=== PATIENT | female | born 1965 | race American Indian/Alaskan Native ===

== ENCOUNTER 2016-06-12 12:12 | Emergency (ER) | payer SELFPAY ==
[2016-06-12] MEDS ORDERED: TORADOL IM ONE (14:51)
--- NOTE | 2016-06-12 15:21 | XRay Report ---
Right wrist 3 views: History: Pain over ulnar aspect. Findings: No fracture or dislocation. No soft tissue calcification. Impression Essentially negative right wrist.
--- NOTE | 2016-06-12 16:59 | Emergency Department Report ---
Entered by PERICO FERREIRA, acting as scribe for TRICE CANNON PA. ED General Adult HPI - General Chief complaint: Extremity Injury, Upper Stated complaint: RT HAND PAIN Time Seen by Provider: 06/12/16 14:34 Source: patient Mode of arrival: Ambulatory Limitations: No Limitations - History of Present Illness Initial comments: 50 year old female presents to the ED for evaluation of right wrist pain for 3 days. Patient describes her pain as pressure and rates her discomfort as a 9/10 in severity. She reports no relieve with home treatments which included ibuprofen and OTC topical lidocaine ointment. She reports no known injury or cause but notes she does repetitive motions at work. Denies tingling, numbness and Hx of carpal tunnel Onset/Timin -: days(s) Location: right (wrist) Radiation: non-radiation Severity scale (0 -10): 9 Quality: constant Consistency: constant Improves with: none Worsens with: movement Associated Symptoms: denies: chest pain, fever/chills, nausea/vomiting, shortness of breath, weakness Treatments Prior to Arrival: NSAID, other (OTC topical lidocaine ointment) - Related Data Previous Rx's Medication Instructions Recorded Last Taken Type Ibuprofen [Motrin] 400 mg PO Q8H PRN #20 tablet 06/18/14 06/26/14 Rx Sulfamethoxazole/Trimethoprim 1 each PO BID #20 tablet 06/18/14 06/25/14 Rx [Bactrim Ds] Acetamin/Codeine 120-12Mg/5 ml 5 ml PO TID PRN #10 dose 06/26/14 Unknown Rx [Tylenol/Codeine] Benzonatate [Tessalon Perles] 100 mg PO Q8HR #10 capsule 06/26/14 Unknown Rx Ibuprofen [Motrin 600 MG tab] 600 mg PO Q8H PRN #14 tablet 06/26/14 Unknown Rx Cephalexin [Keflex] 500 mg PO Q6H #28 capsule 08/16/14 Unknown Rx Clotrimazole 1% [Lotrimin 1%] 1 applic TP BID #2 tube 08/16/14 Unknown Rx Ibuprofen [Motrin] 800 mg PO Q8H PRN #30 tablet 08/16/14 Unknown Rx Lisinopril [Zestril TAB] 10 mg PO QDAY #90 tablet 08/16/14 Unknown Rx traMADol [Ultram] 50 mg PO Q6HR PRN #14 tablet 08/16/14 Unknown Rx Lisinopril/Hydrochlorothiazide 1 tab PO QDAY #60 tablet 08/29/14 Unknown Rx [Zestoretic 10-12.5 mg] Amoxicillin/K Clav Tab [Augmentin 1 tab PO Q12HR #10 tab 01/14/16 Unknown Rx 875 mg] Naproxen [Naprosyn] 500 mg PO BID #30 tablet 06/12/16 Unknown Rx Allergies Allergy/AdvReac Type Severity Reaction Status Date / Time No Known Allergies Allergy Verified 06/12/16 12:28 ED Past Medical Hx - Past Medical History Hx Hypertension: Yes - Surgical History Additional Surgical History: finger - Social History Smoking Status: Never Smoker Substance Use Type: None - Medications Home Medications: Home Medications Medication Instructions Recorded Confirmed Last Taken Type Ibuprofen [Motrin] 400 mg PO Q8H PRN #20 tablet 06/18/14 06/26/14 06/26/14 Rx Sulfamethoxazole/Trimethoprim 1 each PO BID #20 tablet 06/18/14 06/26/14 Rx [Bactrim Ds] Acetamin/Codeine 120-12Mg/5 ml 5 ml PO TID PRN #10 dose 06/26/14 Unknown Rx [Tylenol/Codeine] Benzonatate [Tessalon Perles] 100 mg PO Q8HR #10 capsule 06/26/14 Unknown Rx Ibuprofen [Motrin 600 MG tab] 600 mg PO Q8H PRN #14 tablet 06/26/14 Unknown Rx Cephalexin [Keflex] 500 mg PO Q6H #28 capsule 08/16/14 Unknown Rx Clotrimazole 1% [Lotrimin 1%] 1 applic TP BID #2 tube 08/16/14 Unknown Rx Ibuprofen [Motrin] 800 mg PO Q8H PRN #30 tablet 08/16/14 Unknown Rx Lisinopril [Zestril TAB] 10 mg PO QDAY #90 tablet 08/16/14 Unknown Rx traMADol [Ultram] 50 mg PO Q6HR PRN #14 tablet 08/16/14 Unknown Rx Lisinopril/Hydrochlorothiazide 1 tab PO QDAY #60 tablet 08/29/14 Unknown Rx [Zestoretic 10-12.5 mg] Amoxicillin/K Clav Tab [Augmentin 1 tab PO Q12HR #10 tab 01/14/16 Unknown Rx 875 mg] Naproxen [Naprosyn] 500 mg PO BID #30 tablet 06/12/16 Unknown Rx ED Physical Exam - General Limitations: No Limitations General appearance: other (The patient is well-developed and well-nourished. Patient is in NAD.) - Head Head exam: Present: atraumatic, normocephalic - ENT ENT exam: Present: normal exam, normal orophraynx, mucous membranes moist - Respiratory Respiratory exam: Present: normal lung sounds bilaterally. Absent: respiratory distress, wheezes, rales, rhonchi - Cardiovascular Cardiovascular Exam: Present: regular rate, normal rhythm, normal heart sounds. Absent: systolic murmur, diastolic murmur, rubs, gallop - GI/Abdominal GI/Abdominal exam: Present: soft. Absent: distended, tenderness, guarding, rebound - Expanded Upper Extremity Exam Right Forearm Wrist exam: Present: tenderness (radial aspect of right wrist). Absent : crepidus, erythema, tenderness over anatomical snuff box, pain with axial thumb loading Vascular: Present: normal capillary refill (capillary refill less than 2 seconds. Peripheral pulses intact) - Neurological Exam Neurological exam: Present: alert, oriented X3. Absent: motor sensory deficit - Psychiatric Psychiatric exam: Present: normal affect, normal mood ED Course Vital Signs 06/12/16 06/12/16 12:30 15:18 Temperature 98.2 F Pulse Rate 75 Respiratory 17 20 Rate Blood Pressure 157/93 O2 Sat by Pulse 98 Oximetry ED Medical Decision Making - Lab Data Vital Signs 06/12/16 06/12/16 12:30 15:18 Temperature 98.2 F Pulse Rate 75 Respiratory 17 20 Rate Blood Pressure 157/93 O2 Sat by Pulse 98 Oximetry - Radiology Data Radiology results: report reviewed, image reviewed Right wrist 3 views: History: Pain over ulnar aspect. Findings: No fracture or dislocation. No soft tissue calcification. Impression Essentially negative right wrist. Transcribed By: PTP Dictated By: DONATO WANG MD Electronically Authenticated By: DONATO WANG MD Signed Date/Time: 06/12/16 7080 - Medical Decision Making 50 year old female presents to the ED for evaluation of right wrist pain for 3 days. X-ray reveals no acute fracture or dislocation. Patient is in no acute distress at this time. She will be discharged home and is encouraged to follow up with a primary care provider. She will be sent home on naproxen and is encouraged to return to the emergency room for any worsening symptoms. ED Disposition Clinical Impression: Hand pain Qualifiers: Laterality: right Qualified Code(s): M79.641 - Pain in right hand Wrist pain Qualifiers: Laterality: right Qualified Code(s): M25.531 - Pain in right wrist Disposition: DISCHARGED TO HOME OR SELFCARE Is pt being admited?: No Does the pt Need Aspirin: No Condition: Stable Instructions: Carpal Tunnel Syndrome (ED), Wrist Injury (ED), Hand Sprain (ED) Additional Instructions: Follow-up with primary care provider. Return to the emergency department if symptoms worsen. Prescriptions: Naproxen [Naprosyn] 500 mg PO BID #30 tablet Referrals: PRIMARY CAREMD [Primary Care Provider] - 3-5 Days HOSEA KEN MD [Staff Physician] - 3-5 Days [facility] [Outside] - 3-5 Days Forms: Work/School Release Form(ED) Time of Disposition: 16:53 This documentation as recorded by the HANNA schaffer REBEKAH,accurately reflects the service I personally performed and the decisions made by ,TRICE CANNON PA.
[2016-06-12 17:30] VITALS: BP 134/85
== END 2016-06-12 17:30 | disposition home or self-care (01) ==
LOC: ED 12:12
DX: M25.531 Pain in right wrist (principal); M79.641 Pain in right hand; I10 Essential (primary) hypertension
CPT/HCPCS: 73110; 96372; 99283; J1885

== ENCOUNTER 2016-10-02 20:13 | Emergency (ER) | payer SELFPAY ==
[2016-10-02 20:24] VITALS: BP 157/101
[2016-10-02 20:40] LABS: Basophils % (Auto) 0.9 % (0.0-1.8); Eosinophils % (Auto) 0.5 % (0.0-4.3); Hematocrit 40.5 % (30.3-42.9); Hemoglobin 12.9 gm/dl (10.1-14.3); Mean Corpuscular HGB Conc 32 % (30-34); Mean Corpuscular Volume 80 fl (79-97); Platelet Count 125 K/mm3 (140-440); Red Blood Count 5.04 M/mm3 (3.65-5.03); Red Cell Distribution Width 15.7 % (13.2-15.2); White Blood Count 7.1 K/mm3 (4.5-11.0)
[2016-10-02 20:50] LABS: Anion Gap 12 mmol/L; BUN/Creatinine Ratio 15.71; Blood Urea Nitrogen 11 mg/dL (7-17); Carbon Dioxide 31 mmol/L (22-30); Chloride 99.5 mmol/L (98-107); Glucose 100 mg/dL (65-100); Sodium 138 mmol/L (137-145)
[2016-10-02 20:53] LABS: Mean Corpuscular Hemoglobin 26 pg (28-32)
--- NOTE | 2016-10-05 17:21 | ED Elopement Review ---
ED Pt Elopement review - Results review Lab results: Laboratory Tests 10/02/16 10/02/16 20:25 20:25 WBC 7.1 RBC 5.04 H Hgb 12.9 Hct 40.5 MCV 80 MCH 26 L MCHC 32 RDW 15.7 H Plt Count 125 L Lymph % (Auto) 53.8 H Isabela % (Auto) 7.9 H Eos % (Auto) 0.5 Baso % (Auto) 0.9 Lymph # 3.8 Isabela # 0.6 Eos # 0.0 Baso # 0.1 Seg Neutrophils % 36.9 L Seg Neutrophils # 2.6 Sodium 138 Potassium 4.0 Chloride 99.5 Carbon Dioxide 31 H Anion Gap 12 BUN 11 Creatinine 0.7 Estimated GFR > 60 BUN/Creatinine Ratio 15.71 Glucose 100 Calcium 9.0 Troponin T < 0.010 - Call Back decision Pt Call Back Decision: No action required
== END 2016-10-02 23:34 | disposition left against medical advice (07) ==
LOC: ED 20:13
DX: R07.9 Chest pain, unspecified (principal); M79.602 Pain in left arm; Z53.21 Procedure and treatment not carried out due to patient leaving prior to being seen by health care provider
CPT/HCPCS: 36415; 80048; 84484; 85025; 93005; 93010

== ENCOUNTER 2017-02-06 18:01 | Emergency (ER) | payer OTHER ==
--- NOTE | 2017-02-06 21:38 | Emergency Department Report ---
HPI - General Chief Complaint: Sore Throat Time Seen by Provider: 02/06/17 20:48 - HPI HPI: 51-year-old female presents today complaining of sore throat, body aches and chills times one day. Admits to painful swallowing, nasal congestion and left earache. The patient tried Goody powder and warm salt water gargles with some relief. Admits to grandchildren having similar symptoms. Denies fever, nausea , vomiting, chest pain, shortness of breath, abdominal pain. ED Past Medical Hx - Past Medical History Previous Medical History?: Yes Hx Hypertension: Yes - Surgical History Past Surgical History?: Yes Additional Surgical History: finger - Social History Smoking Status: Never Smoker Substance Use Type: None - Medications Home Medications: Home Medications Medication Instructions Recorded Confirmed Last Taken Type Ibuprofen [Motrin] 400 mg PO Q8H PRN #20 tablet 06/18/14 06/26/14 06/26/14 Rx Sulfamethoxazole/Trimethoprim 1 each PO BID #20 tablet 06/18/14 06/26/14 Rx [Bactrim Ds] Acetamin/Codeine 120-12Mg/5 ml 5 ml PO TID PRN #10 dose 06/26/14 Unknown Rx [Tylenol/Codeine] Benzonatate [Tessalon Perles] 100 mg PO Q8HR #10 capsule 06/26/14 Unknown Rx Ibuprofen [Motrin 600 MG tab] 600 mg PO Q8H PRN #14 tablet 06/26/14 Unknown Rx Cephalexin [Keflex] 500 mg PO Q6H #28 capsule 08/16/14 Unknown Rx Clotrimazole 1% [Lotrimin 1%] 1 applic TP BID #2 tube 08/16/14 Unknown Rx Ibuprofen [Motrin] 800 mg PO Q8H PRN #30 tablet 08/16/14 Unknown Rx Lisinopril [Zestril TAB] 10 mg PO QDAY #90 tablet 08/16/14 Unknown Rx traMADol [Ultram] 50 mg PO Q6HR PRN #14 tablet 08/16/14 Unknown Rx Lisinopril/Hydrochlorothiazide 1 tab PO QDAY #60 tablet 08/29/14 Unknown Rx [Zestoretic 10-12.5 mg] Naproxen [Naprosyn] 500 mg PO BID #30 tablet 06/12/16 Unknown Rx Amoxicillin/K Clav Tab [Augmentin 1 tab PO Q12HR #20 tab 02/06/17 Unknown Rx 875MG TAB] Lidocaine Viscous 2% 15 ml MM TID #100 ml 02/06/17 Unknown Rx ED Review of Systems ROS: Stated complaint: SORE THROAT, BODY ACHES Other details as noted in HPI Constitutional: chills, other (bodyaches). denies: fever Eyes: denies: eye pain ENT: ear pain, throat pain, congestion Respiratory: denies: cough, shortness of breath, wheezing Cardiovascular: denies: chest pain, palpitations Endocrine: no symptoms reported Gastrointestinal: denies: abdominal pain, nausea, vomiting Musculoskeletal: denies: back pain Skin: denies: rash Neurological: denies: headache, weakness, numbness, paresthesias Physical Exam - Physical Exam Vital Signs: Vital Signs 02/06/17 19:26 Temperature 99.7 F H Pulse Rate 86 Respiratory 18 Rate Blood Pressure 151/75 O2 Sat by Pulse 99 Oximetry Physical Exam: GENERAL: The patient is well-developed and well-nourished. Patient is in NAD. HEAD: Normocephalic. Atraumatic. Pressure upon palpation of maxillary sinuses. EYES: Extraocular motions are intact, PERRL. EARS: External auditory canals and tympanic membranes clear; hearing grossly intact. NOSE: Normal nasal mucosa with no nasal discharge. THROAT: Posterior pharynx erythematous without tonsillomegaly. No tonsillar exudates. NECK: Positive for anterior cervical lymphadenopathy. CHEST/LUNGS: Clear to auscultation throughout. HEART/CARDIOVASCULAR: Regular rate and rhythm. No murmurs, rubs or gallops. ABDOMEN: Abdomen is soft, nontender. Bowel sounds normoactive. No guarding or rebound tenderness. EXTREMITIES: Peripheral pulses intact. Capillary refill less than 2 seconds. NEURO: Alert and oriented x 3. Normal gait. ED Course Vital Signs 02/06/17 19:26 Temperature 99.7 F H Pulse Rate 86 Respiratory 18 Rate Blood Pressure 151/75 O2 Sat by Pulse 99 Oximetry ED Medical Decision Making - Lab Data Vital Signs 02/06/17 19:26 Temperature 99.7 F H Pulse Rate 86 Respiratory 18 Rate Blood Pressure 151/75 O2 Sat by Pulse 99 Oximetry - Medical Decision Making 51-year-old female presents today complaining of sore throat, chills and body aches 1 day. Her rapid strep test is positive. On exam patient has erythematous posterior pharynx, tonsillomegaly and pressure upon palpation of maxillary sinuses. Patient is in no acute distress at this time. She will be discharged home and is encouraged to follow up with a primary care provider. She will be sent home on Augmentin and viscous lidocaine and is encouraged to return to the emergency room for any worsening symptoms. Critical care attestation.: If time is entered above; I have spent that time in minutes in the direct care of this critically ill patient, excluding procedure time. ED Disposition Clinical Impression: Pharyngitis Qualifiers: Pharyngitis/tonsillitis etiology: streptococcus Qualified Code(s): J02.0 - Streptococcal pharyngitis Sinusitis Qualifiers: Sinusitis location: maxillary Chronicity: acute Recurrence: non-recurrent Qualified Code(s): J01.00 - Acute maxillary sinusitis, unspecified Disposition: TO HOME OR SELFCARE Is pt being admited?: No Does the pt Need Aspirin: No Condition: Stable Instructions: Pharyngitis (ED), Sinusitis (ED) Additional Instructions: Alternate Tylenol and Motrin for better fever control. Follow-up with primary care provider. Return to the emergency department if symptoms worsen. Prescriptions: Amoxicillin/K Clav Tab [Augmentin 875MG TAB] 1 tab PO Q12HR #20 tab Lidocaine Viscous 2% 15 ml MM TID #100 ml Referrals: PRIMARY CARE [Primary Care Provider] - 3-5 Days [facility] [Outside] - 3-5 Days Forms: Work/School Release Form(ED), Accompanied Note Time of Disposition: 21:39
[2017-02-06 21:57] VITALS: BP 151/92
== END 2017-02-06 21:57 | disposition home or self-care (01) ==
LOC: ED 18:01
DX: J02.9 Acute pharyngitis, unspecified (principal); J32.0 Chronic maxillary sinusitis; I10 Essential (primary) hypertension
CPT/HCPCS: 87430; 99282

== ENCOUNTER 2018-09-10 12:12 | Emergency (ER) | payer OTHER ==
[2018-09-10 12:25] VITALS: BP 152/78
--- NOTE | 2018-09-10 12:44 | Event Note ---
ED Screening Note ED Screening Note: lle pain- behind knee jeans to tight to see leg on screening need to eval in ACC no cp no sob no tachy no fever no trauma no hx of same pmh htn mom dec chf dad dec ca home rx bp med This initial assessment/diagnostic orders/clinical plan/treatment(s) is/are subject to change based on patients health status, clinical progression and re- assessment by fellow clinical providers in the ED. Further treatment and workup at subsequent clinical providers discretion. Patient/guardian urged not to elope from the ED as their condition may be serious if not clinically assessed and managed. Initial orders include: eval in ACC
[2018-09-10] MEDS ORDERED: IBUPROFEN PO ONE (13:44)
--- NOTE | 2018-09-10 13:44 | Emergency Department Report ---
ED Lower Extremity HPI - General Chief Complaint: Extremity Injury, Lower Stated Complaint: L LEG PAIN Time Seen by Provider: 09/10/18 13:30 Source: patient, RN notes reviewed Mode of arrival: Ambulatory Limitations: No Limitations - History of Present Illness Initial Comments: This is a 52-year-old female, pleasant, has history of obesity and hypertension, presents to the emergency room tonight with a complaint of nontraumatic left medial thigh/quadricep pain and present for the past day or so. It is achy and sharp. It increases with palpation. It decreases with rest. The patient denies DVT, pulmonary embolus risk factors. She endorses that her job has her standing up "all day." She denies headache, neck pain, abdominal pain, extremity weakness, denies swelling, denies redness, pus, streaking, denies urinary symptoms, denies ocular symptoms. On review of systems, she doesn't worse intermittent chest discomfort, present "for a long time", which is not associated with vomiting, diaphoresis, exertion or nausea or vomiting. She last experienced this chest discomfort 36 hours ago. She is chest pain-free at this time. She has not taken any [id number] medications for her pain. MD Complaint: other -: Gradual, days(s) Injury: Thigh: Left Type of Injury: other Place: home, work Severity: moderate Improves With: rest Worsens With: movement, palpation - Related Data Previous Rx's Medication Instructions Recorded Last Taken Type Ibuprofen [Motrin] 400 mg PO Q8H PRN #20 tablet 06/18/14 06/26/14 Rx Sulfamethoxazole/Trimethoprim 1 each PO BID #20 tablet 06/18/14 06/25/14 Rx [Bactrim Ds] Acetamin/Codeine 120-12Mg/5 ml 5 ml PO TID PRN #10 dose 06/26/14 Unknown Rx [Tylenol/Codeine] Benzonatate [Tessalon Perles] 100 mg PO Q8HR #10 capsule 06/26/14 Unknown Rx Ibuprofen [Motrin 600 MG tab] 600 mg PO Q8H PRN #14 tablet 06/26/14 Unknown Rx Clotrimazole 1% [Lotrimin 1%] 1 applic TP BID #2 tube 08/16/14 Unknown Rx Ibuprofen [Motrin] 800 mg PO Q8H PRN #30 tablet 08/16/14 Unknown Rx Lisinopril [Zestril TAB] 10 mg PO QDAY #90 tablet 08/16/14 Unknown Rx cephALEXin [Keflex] 500 mg PO Q6H #28 capsule 08/16/14 Unknown Rx traMADol [Ultram] 50 mg PO Q6HR PRN #14 tablet 08/16/14 Unknown Rx Lisinopril/Hydrochlorothiazide 1 tab PO QDAY #60 tablet 08/29/14 Unknown Rx [Zestoretic 10-12.5 mg] Naproxen [Naprosyn] 500 mg PO BID #30 tablet 06/12/16 Unknown Rx Amoxicillin/K Clav Tab [Augmentin 1 tab PO Q12HR #20 tab 02/06/17 Unknown Rx 875MG TAB] Lidocaine Viscous 2% 15 ml MM TID #100 ml 02/06/17 Unknown Rx Acetaminophen [Non-Aspirin Extra 500 mg PO Q6HR PRN #30 tablet 09/10/18 Unknown Rx Strength] Ibuprofen [Motrin] 600 mg PO Q8H PRN #30 tablet 09/10/18 Unknown Rx Allergies Allergy/AdvReac Type Severity Reaction Status Date / Time No Known Allergies Allergy Verified 09/10/18 12:25 ED Review of Systems ROS: Stated complaint: L LEG PAIN Other details as noted in HPI Constitutional: denies: fever Eyes: denies: eye discharge ENT: denies: epistaxis Respiratory: denies: cough Cardiovascular: denies: syncope Gastrointestinal: denies: abdominal pain Genitourinary: denies: dysuria Musculoskeletal: arthralgia, myalgia Skin: denies: lesions Neurological: denies: weakness ED Past Medical Hx - Past Medical History Hx Hypertension: Yes - Surgical History Additional Surgical History: finger - Social History Smoking Status: Never Smoker Substance Use Type: Alcohol - Medications Home Medications: Home Medications Medication Instructions Recorded Confirmed Last Taken Type Ibuprofen [Motrin] 400 mg PO Q8H PRN #20 tablet 06/18/14 06/26/14 06/26/14 Rx Sulfamethoxazole/Trimethoprim 1 each PO BID #20 tablet 06/18/14 06/26/14 06/25/14 Rx [Bactrim Ds] Acetamin/Codeine 120-12Mg/5 ml 5 ml PO TID PRN #10 dose 06/26/14 Unknown Rx [Tylenol/Codeine] Benzonatate [Tessalon Perles] 100 mg PO Q8HR #10 capsule 06/26/14 Unknown Rx Ibuprofen [Motrin 600 MG tab] 600 mg PO Q8H PRN #14 tablet 06/26/14 Unknown Rx Clotrimazole 1% [Lotrimin 1%] 1 applic TP BID #2 tube 08/16/14 Unknown Rx Ibuprofen [Motrin] 800 mg PO Q8H PRN #30 tablet 08/16/14 Unknown Rx Lisinopril [Zestril TAB] 10 mg PO QDAY #90 tablet 08/16/14 Unknown Rx cephALEXin [Keflex] 500 mg PO Q6H #28 capsule 08/16/14 Unknown Rx traMADol [Ultram] 50 mg PO Q6HR PRN #14 tablet 08/16/14 Unknown Rx Lisinopril/Hydrochlorothiazide 1 tab PO QDAY #60 tablet 08/29/14 Unknown Rx [Zestoretic 10-12.5 mg] Naproxen [Naprosyn] 500 mg PO BID #30 tablet 06/12/16 Unknown Rx Amoxicillin/K Clav Tab [Augmentin 1 tab PO Q12HR #20 tab 02/06/17 Unknown Rx 875MG TAB] Lidocaine Viscous 2% 15 ml MM TID #100 ml 02/06/17 Unknown Rx Acetaminophen [Non-Aspirin Extra 500 mg PO Q6HR PRN #30 tablet 09/10/18 Unknown Rx Strength] Ibuprofen [Motrin] 600 mg PO Q8H PRN #30 tablet 09/10/18 Unknown Rx ED Physical Exam - General Limitations: No Limitations General appearance: alert, in no apparent distress - Head Head exam: Present: atraumatic, normocephalic, other - Eye Eye exam: Present: normal appearance, EOMI. Absent: nystagmus - ENT ENT exam: Present: normal exam, normal orophraynx, mucous membranes moist, normal external ear exam - Neck Neck exam: Present: normal inspection, full ROM. Absent: tenderness, meningismus - Respiratory Respiratory exam: Present: normal lung sounds bilaterally. Absent: respiratory distress - Cardiovascular Cardiovascular Exam: Present: regular rate, normal rhythm, normal heart sounds. Absent: bradycardia, tachycardia, irregular rhythm, systolic murmur, diastolic murmur, rubs, gallop - GI/Abdominal GI/Abdominal exam: Present: soft. Absent: distended, tenderness, guarding, rebound, rigid, pulsatile mass - Extremities Exam Extremities exam: Present: normal inspection, full ROM, tenderness (there is reproducible left-sided medial thigh tenderness. There is no long bony tenderness. Chaperoned by nurse Knidra Arias), other (2+ pulses noted in the bilateral upper, lower extremities. Compartments soft. No long bony tenderness. The pelvis is stable.). Absent: pedal edema, calf tenderness - Back Exam Back exam: Present: normal inspection, full ROM. Absent: tenderness, CVA tenderness (R), CVA tenderness (L), paraspinal tenderness, vertebral tenderness - Neurological Exam Neurological exam: Present: alert, oriented X3, other (Extraocular movements intact. Tongue midline. No facial droop. Facial sensation intact to light touch in the V1, V2, V3 distribution bilaterally. 5 and 5 strength in 4 extremities.. Sensation is intact to light touch in 4 extremities.). Absent: motor sensory deficit - Psychiatric Psychiatric exam: Present: normal affect, normal mood - Skin Skin exam: Present: warm, dry, intact, normal color. Absent: rash ED Course Vital Signs 09/10/18 12:24 Temperature 98.2 F Pulse Rate 67 Respiratory 16 Rate Blood Pressure 152/78 [Right] O2 Sat by Pulse 97 Oximetry ED Lower Extremity MDM - Lab Data Vital Signs 09/10/18 12:24 Temperature 98.2 F Pulse Rate 67 Respiratory 16 Rate Blood Pressure 152/78 [Right] O2 Sat by Pulse 97 Oximetry - EKG Data -: EKG Interpreted by Ar Rate: bradycardia - EKG Data 09/10/18 14:16 This is a sinus bradycardia, normal axis, QTC within normal limits, borderline left ventricular hypertrophy, no active chest pain at this time, this EKG is not consistent with ST elevation myocardial infarction. - Medical Decision Making Differential diagnosis, including not limited to: Arthritis, sprain, strain, patellofemoral syndrome Assessment and plan: 52-year-old female with left medial thigh pain, reproducible, not tachycardic, not hypoxic, no pulmonary embolus or DVT risk factors, low risk by well's criteria, possibly musculoskeletal pain. Her pain is treated in the emergency room. She is to follow-up with an outpatient primary care doctor, and/or orthopedics. We discussed possible modalities for home therapy, including stretching, physiologic range of motion exercises, alternating heat and cold. EKG unremarkable, no active chest pain at this time, patient smiling with family member, and appears ready for discharge. Critical care attestation.: If time is entered above; I have spent that time in minutes in the direct care of this critically ill patient, excluding procedure time. ED Disposition Clinical Impression: Left leg pain Disposition: DC-01 TO HOME OR SELFCARE Is pt being admited?: No Does the pt Need Aspirin: No Condition: Good Instructions: Patellofemoral Pain Syndrome (ED), Knee Exercises (GEN) Additional Instructions: Rest, avoid heavy lifting, and avoid strenuous physical activities. Take the pain medications as directed. participate in range of motion exercises, and stretches as we have discussed. Alternate ice packs with heat packs as directed. Follow up with a primary care doctor or orthopedist for this pain in the next 3- 4 weeks. Return to the emergency room right away with her, worsens or different symptoms, or symptoms not present on the initial emergency room evaluation. Referrals: [facility] [Provider Group] - 3-[address] [facility] [Provider Group] - 3-5 Days Forms: Work/School Release Form(ED)
== END 2018-09-10 15:04 | disposition home or self-care (01) ==
LOC: ED 12:12
DX: M79.605 Pain in left leg (principal); I10 Essential (primary) hypertension; Z79.899 Other long term (current) drug therapy
CPT/HCPCS: 93005; 93010; 99282

== ENCOUNTER 2018-10-02 09:13 | Emergency (ER) | payer OTHER ==
[2018-10-02 09:20] VITALS: BP 165/93
[2018-10-02] MEDS ORDERED: IBUPROFEN PO ONE (09:31)
--- NOTE | 2018-10-02 09:34 | Emergency Department Report ---
ED ENT HPI - General Chief complaint: Sore Throat Stated complaint: STREP THROAT Time Seen by Provider: 10/02/18 09:19 Source: patient Mode of arrival: Ambulatory Limitations: No Limitations - History of Present Illness Initial comments: 52-year-old -[place] female presents to the emergency room for sore throat since 09/30/2018. Patient denies any fever proportion to the Goody powder for pain. She does admit to grandchildren N Carpenter with strep throat. Patient reports that the past medical history of hypertension and currently takes lisinopril and amlodipine. Patient did not take her blood pressure medication this morning. MD complaint: sore throat Onset/Timin -: days(s) Location: throat Severity: severe Severity scale (0 -10): 10 Quality: aching, sharp Consistency: constant Improves with: other medication Worsens with: swallowing Associated Symptoms: cough, pain with swallowing. denies: fever - Related Data Previous Rx's Medication Instructions Recorded Last Taken Type Ibuprofen [Motrin] 400 mg PO Q8H PRN #20 tablet 06/18/14 06/26/14 Rx Sulfamethoxazole/Trimethoprim 1 each PO BID #20 tablet 06/18/14 06/25/14 Rx [Bactrim Ds] Benzonatate [Tessalon Perles] 100 mg PO Q8HR #10 capsule 06/26/14 Unknown Rx Ibuprofen [Motrin 600 MG tab] 600 mg PO Q8H PRN #14 tablet 06/26/14 Unknown Rx Clotrimazole 1% [Lotrimin 1%] 1 applic TP BID #2 tube 08/16/14 Unknown Rx Ibuprofen [Motrin] 800 mg PO Q8H PRN #30 tablet 08/16/14 Unknown Rx Lisinopril [Zestril TAB] 10 mg PO QDAY #90 tablet 08/16/14 Unknown Rx cephALEXin [Keflex] 500 mg PO Q6H #28 capsule 08/16/14 Unknown Rx traMADol [Ultram] 50 mg PO Q6HR PRN #14 tablet 08/16/14 Unknown Rx Lisinopril/Hydrochlorothiazide 1 tab PO QDAY #60 tablet 08/29/14 Unknown Rx [Zestoretic 10-12.5 mg] Naproxen [Naprosyn] 500 mg PO BID #30 tablet 06/12/16 Unknown Rx Amoxicillin/K Clav Tab [Augmentin 1 tab PO Q12HR #20 tab 02/06/17 Unknown Rx 875MG TAB] Lidocaine Viscous 2% 15 ml MM TID #100 ml 02/06/17 Unknown Rx Acetaminophen [Non-Aspirin Extra 500 mg PO Q6HR PRN #30 tablet 09/10/18 Unknown Rx Strength] Ibuprofen [Motrin] 600 mg PO Q8H PRN #30 tablet 09/10/18 Unknown Rx Acetamin/Codeine 120-12Mg/5 ml 5 ml PO TID PRN #10 dose 10/02/18 Unknown Rx [Tylenol/Codeine 120-12 mg/5 ml] Amoxicillin [Amoxicillin TAB] 875 mg PO BID #20 tablet 10/02/18 Unknown Rx Ibuprofen [Motrin 800 MG tab] 800 mg PO Q8HR PRN #30 tablet 10/02/18 Unknown Rx Allergies Allergy/AdvReac Type Severity Reaction Status Date / Time No Known Allergies Allergy Verified 10/02/18 09:15 ED Dental HPI - General Chief complaint: Sore Throat Stated complaint: STREP THROAT Time Seen by Provider: 10/02/18 09:19 Source: patient Mode of arrival: Ambulatory Limitations: No Limitations - Related Data Previous Rx's Medication Instructions Recorded Last Taken Type Ibuprofen [Motrin] 400 mg PO Q8H PRN #20 tablet 06/18/14 06/26/14 Rx Sulfamethoxazole/Trimethoprim 1 each PO BID #20 tablet 06/18/14 06/25/14 Rx [Bactrim Ds] Benzonatate [Tessalon Perles] 100 mg PO Q8HR #10 capsule 06/26/14 Unknown Rx Ibuprofen [Motrin 600 MG tab] 600 mg PO Q8H PRN #14 tablet 06/26/14 Unknown Rx Clotrimazole 1% [Lotrimin 1%] 1 applic TP BID #2 tube 08/16/14 Unknown Rx Ibuprofen [Motrin] 800 mg PO Q8H PRN #30 tablet 08/16/14 Unknown Rx Lisinopril [Zestril TAB] 10 mg PO QDAY #90 tablet 08/16/14 Unknown Rx cephALEXin [Keflex] 500 mg PO Q6H #28 capsule 08/16/14 Unknown Rx traMADol [Ultram] 50 mg PO Q6HR PRN #14 tablet 08/16/14 Unknown Rx Lisinopril/Hydrochlorothiazide 1 tab PO QDAY #60 tablet 08/29/14 Unknown Rx [Zestoretic 10-12.5 mg] Naproxen [Naprosyn] 500 mg PO BID #30 tablet 06/12/16 Unknown Rx Amoxicillin/K Clav Tab [Augmentin 1 tab PO Q12HR #20 tab 02/06/17 Unknown Rx 875MG TAB] Lidocaine Viscous 2% 15 ml MM TID #100 ml 02/06/17 Unknown Rx Acetaminophen [Non-Aspirin Extra 500 mg PO Q6HR PRN #30 tablet 09/10/18 Unknown Rx Strength] Ibuprofen [Motrin] 600 mg PO Q8H PRN #30 tablet 09/10/18 Unknown Rx Acetamin/Codeine 120-12Mg/5 ml 5 ml PO TID PRN #10 dose 10/02/18 Unknown Rx [Tylenol/Codeine 120-12 mg/5 ml] Amoxicillin [Amoxicillin TAB] 875 mg PO BID #20 tablet 10/02/18 Unknown Rx Ibuprofen [Motrin 800 MG tab] 800 mg PO Q8HR PRN #30 tablet 10/02/18 Unknown Rx Allergies Allergy/AdvReac Type Severity Reaction Status Date / Time No Known Allergies Allergy Verified 10/02/18 09:15 ED Review of Systems ROS: Stated complaint: STREP THROAT Other details as noted in HPI Constitutional: denies: chills, fever Eyes: denies: eye pain, eye discharge, vision change ENT: throat pain. denies: ear pain Respiratory: denies: cough, shortness of breath, wheezing Cardiovascular: denies: chest pain, palpitations Endocrine: no symptoms reported Gastrointestinal: denies: abdominal pain, nausea, diarrhea Genitourinary: denies: urgency, dysuria, discharge Musculoskeletal: denies: back pain, joint swelling, arthralgia Skin: denies: rash, lesions Neurological: denies: headache, weakness, paresthesias Psychiatric: denies: anxiety, depression Hematological/Lymphatic: denies: easy bleeding, easy bruising ED Past Medical Hx - Past Medical History Previous Medical History?: Yes Hx Hypertension: Yes - Surgical History Past Surgical History?: Yes Additional Surgical History: finger - Social History Smoking Status: Never Smoker Substance Use Type: Alcohol, Other - Medications Home Medications: Home Medications Medication Instructions Recorded Confirmed Last Taken Type Ibuprofen [Motrin] 400 mg PO Q8H PRN #20 tablet 0306/26/14 06/26/14 Rx Sulfamethoxazole/Trimethoprim 1 each PO BID #20 tablet 06/18/14 06/26/14 06/25/14 Rx [Bactrim Ds] Benzonatate [Tessalon Perles] 100 mg PO Q8HR #10 capsule 06/26/14 Unknown Rx Ibuprofen [Motrin 600 MG tab] 600 mg PO Q8H PRN #14 tablet 06/26/14 Unknown Rx Clotrimazole 1% [Lotrimin 1%] 1 applic TP BID #2 tube 08/16/14 Unknown Rx Ibuprofen [Motrin] 800 mg PO Q8H PRN #30 tablet 08/16/14 Unknown Rx Lisinopril [Zestril TAB] 10 mg PO QDAY #90 tablet 08/16/14 Unknown Rx cephALEXin [Keflex] 500 mg PO Q6H #28 capsule 08/16/14 Unknown Rx traMADol [Ultram] 50 mg PO Q6HR PRN #14 tablet 08/16/14 Unknown Rx Lisinopril/Hydrochlorothiazide 1 tab PO QDAY #60 tablet 08/29/14 Unknown Rx [Zestoretic 10-12.5 mg] Naproxen [Naprosyn] 500 mg PO BID #30 tablet 06/12/16 Unknown Rx Amoxicillin/K Clav Tab [Augmentin 1 tab PO Q12HR #20 tab 02/06/17 Unknown Rx 875MG TAB] Lidocaine Viscous 2% 15 ml MM TID #100 ml 02/06/17 Unknown Rx Acetaminophen [Non-Aspirin Extra 500 mg PO Q6HR PRN #30 tablet 09/10/18 Unknown Rx Strength] Ibuprofen [Motrin] 600 mg PO Q8H PRN #30 tablet 09/10/18 Unknown Rx Acetamin/Codeine 120-12Mg/5 ml 5 ml PO TID PRN #10 dose 10/02/18 Unknown Rx [Tylenol/Codeine 120-12 mg/5 ml] Amoxicillin [Amoxicillin TAB] 875 mg PO BID #20 tablet 10/02/18 Unknown Rx Ibuprofen [Motrin 800 MG tab] 800 mg PO Q8HR PRN #30 tablet 10/02/18 Unknown Rx ED Physical Exam - General Limitations: No Limitations General appearance: alert, in no apparent distress - Head Head exam: Present: atraumatic, normocephalic - Eye Eye exam: Present: EOMI - Expanded ENT Exam Expanded Throat exam: Positive: tonsillar erythema, tonsillomegaly. Negative: tonsillar exudate - Neck Neck exam: Present: full ROM. Absent: tenderness, lymphadenopathy - Respiratory Respiratory exam: Present: normal lung sounds bilaterally. Absent: respiratory distress - Cardiovascular Cardiovascular Exam: Present: tachycardia - GI/Abdominal GI/Abdominal exam: Present: soft, normal bowel sounds - Extremities Exam Extremities exam: Present: normal inspection - Back Exam Back exam: Present: normal inspection - Neurological Exam Neurological exam: Present: alert, oriented X3 - Psychiatric Psychiatric exam: Present: normal affect, normal mood - Skin Skin exam: Present: warm, dry, intact, normal color. Absent: rash ED Course Vital Signs 10/02/18 09:18 Temperature 100.4 F H Pulse Rate 110 H Respiratory 18 Rate Blood Pressure 165/93 O2 Sat by Pulse 96 Oximetry ED Medical Decision Making - Lab Data Laboratory Tests 10/02/18 Unknown Group A Strep Rapid Positive A - Medical Decision Making 52-year-old -[place] female presents to the emergency room for 2 day history of sore throat. Rapid strep throat has been sent to lab. 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 Critical care attestation.: If time is entered above; I have spent that time in minutes in the direct care of this critically ill patient, excluding procedure time. ED Disposition Clinical Impression: Strep pharyngitis Disposition: DC-01 TO HOME OR SELFCARE Is pt being admited?: No Does the pt Need Aspirin: No Condition: Stable Instructions: Strep Throat (ED) Additional Instructions: Lab tests positive for strep throat. Please complete her antibiotics as prescribed. Pain medication as needed. Increase her fluid intake and should as tolerated. Follow up with her primary care provider if his symptoms persist or gets worse. Prescriptions: Amoxicillin [Amoxicillin TAB] 875 mg PO BID #20 tablet Ibuprofen [Motrin 800 MG tab] 800 mg PO Q8HR PRN #30 tablet PRN Reason: Pain , Severe (7-10) Acetamin/Codeine 120-12Mg/5 ml [Tylenol/Codeine 120-12 mg/5 ml] 5 ml PO TID PRN #10 dose PRN Reason: Pain Referrals: Your,Primary Care Provider [Other] - 3-5 Days [facility] [Outside] - 3-5 Days Forms: Work/School Release Form(ED)
== END 2018-10-02 10:08 | disposition home or self-care (01) ==
LOC: ED 09:13
DX: J02.0 Streptococcal pharyngitis (principal); Z79.899 Other long term (current) drug therapy; I10 Essential (primary) hypertension
CPT/HCPCS: 87430; 99283

== ENCOUNTER 2021-07-18 08:37 | Observation (INO) | payer OTHER ==
[2021-07-18 14:50] LABS: Bacteria,Urine 1+ /HPF (Negative); Bilirubin,Urine NEG (Negative); Blood,Urine NEG (Negative); Color,Urine Yellow (Yellow); Mucus,Urine 3+ /HPF; Protein,Urine <15 mg/dL mg/dL (Negative); Urobilinogen,Urine < 2.0 mg/dL (<2.0)
[2021-07-18] MEDS ORDERED: SODIUM CHLORIDE 0.9% 1000 ML 1,000 ML IV ONE (15:45)
[2021-07-18] MEDS ORDERED: ONDANSETRON 4 MG/2 ML INJ IV ONE (15:45)
[2021-07-18] MEDS ORDERED: PANTOPRAZOLE 40 MG INJ IV ONE (15:45)
[2021-07-18] MEDS ORDERED: MORPHINE 4 MG/1 ML INJ IV ONE (15:48)
--- NOTE | 2021-07-18 15:49 | Emergency Department Report ---
ED General Adult HPI - General Chief complaint: Abdominal Pain Stated complaint: ABD PAIN Time Seen by Provider: 07/18/21 15:33 Source: patient, RN notes reviewed, old records reviewed Mode of arrival: Ambulatory Limitations: No Limitations - History of Present Illness Initial comments: This is a pleasant 55-year-old female, who presents to the ER with a complaint of epigastric abdominal pain, yellow emesis followed by black emesis, lower abdominal cramping, and black tarry stool. Patient has been taking pain medication for lower back pain, she is not sure what the name of the medication is. She denies headache, neck pain, chest pain, shortness of breath, DVT/PE risk factors, and urinary symptoms. Abdominal pain is sharp and increases with palpation. It decreases with rest. She does not take iron sulfate that she is aware of, and she also reports that she does not take systemic anticoagulation. She has had a relatively recent colonoscopy within the past few years, and believes that it demonstrated polyps. -: Gradual Location: abdomen Severity scale (0 -10): 8 Quality: other Consistency: other Improves with: other Worsens with: other - Related Data Previous Rx's Medication Instructions Recorded Last Taken Type Ibuprofen [Motrin] 400 mg PO Q8H PRN #20 tablet 06/18/14 06/26/14 Rx Sulfamethoxazole/Trimethoprim 1 each PO BID #20 tablet 06/18/14 06/25/14 Rx [Bactrim Ds] Benzonatate [Tessalon Perles] 100 mg PO Q8HR #10 capsule 06/26/14 Unknown Rx Ibuprofen [Motrin 600 MG tab] 600 mg PO Q8H PRN #14 tablet 06/26/14 Unknown Rx Clotrimazole 1% [Lotrimin 1%] 1 applic TP BID #2 tube 08/16/14 Unknown Rx Ibuprofen [Motrin] 800 mg PO Q8H PRN #30 tablet 08/16/14 Unknown Rx cephALEXin [Keflex] 500 mg PO Q6H #28 capsule 08/16/14 Unknown Rx lisinopriL [Zestril TAB] 10 mg PO QDAY #90 tablet 08/16/14 Unknown Rx traMADoL [Ultram] 50 mg PO Q6HR PRN #14 tablet 08/16/14 Unknown Rx Lisinopril/Hydrochlorothiazide 1 tab PO QDAY #60 tablet 08/29/14 Unknown Rx [Zestoretic 10-12.5 mg] Naproxen [Naprosyn] 500 mg PO BID #30 tablet 06/12/16 Unknown Rx Amoxicillin/K Clav Tab [Augmentin 1 tab PO Q12HR #20 tab 02/06/17 Unknown Rx 875MG TAB] Lidocaine Viscous 2% 15 ml MM TID #100 ml 02/06/17 Unknown Rx Acetaminophen [Non-Aspirin Extra 500 mg PO Q6HR PRN #30 tablet 09/10/18 Unknown Rx Strength] Ibuprofen [Motrin] 600 mg PO Q8H PRN #30 tablet 09/10/18 Unknown Rx Acetamin/Codeine 120-12Mg/5 ml 5 ml PO TID PRN #10 dose 10/02/18 Unknown Rx [Tylenol/Codeine 120-12 mg/5 ml] Amoxicillin [Amoxicillin TAB] 875 mg PO BID #20 tablet 10/02/18 Unknown Rx Ibuprofen [Motrin 800 MG tab] 800 mg PO Q8HR PRN #30 tablet 10/02/18 Unknown Rx Naproxen 500 mg PO BID PRN #30 tablet 12/18/18 Unknown Rx Allergies Allergy/AdvReac Type Severity Reaction Status Date / Time No Known Allergies Allergy Verified 10/02/18 09:15 ED Review of Systems ROS: Stated complaint: ABD PAIN Other details as noted in HPI Constitutional: denies: fever Eyes: denies: eye discharge ENT: denies: epistaxis Respiratory: denies: wheezing Cardiovascular: denies: chest pain Gastrointestinal: abdominal pain, nausea, vomiting, hematemesis, melena. denies: hematochezia Musculoskeletal: back pain Neurological: denies: weakness ED Past Medical Hx - Past Medical History Hx Hypertension: Yes - Surgical History Past Surgical History?: No Additional Surgical History: finger - Social History Smoking Status: Never Smoker Substance Use Type: None - Medications Home Medications: Home Medications Medication Instructions Recorded Confirmed Last Taken Type Ibuprofen [Motrin] 400 mg PO Q8H PRN #20 tablet 06/18/14 06/26/14 06/26/14 Rx Sulfamethoxazole/Trimethoprim 1 each PO BID #20 tablet 06/18/14 06/26/14 06/25/14 Rx [Bactrim Ds] Benzonatate [Tessalon Perles] 100 mg PO Q8HR #10 capsule 06/26/14 Unknown Rx Ibuprofen [Motrin 600 MG tab] 600 mg PO Q8H PRN #14 tablet 06/26/14 Unknown Rx Clotrimazole 1% [Lotrimin 1%] 1 applic TP BID #2 tube 08/16/14 Unknown Rx Ibuprofen [Motrin] 800 mg PO Q8H PRN #30 tablet 08/16/14 Unknown Rx cephALEXin [Keflex] 500 mg PO Q6H #28 capsule 08/16/14 Unknown Rx lisinopriL [Zestril TAB] 10 mg PO QDAY #90 tablet 08/16/14 Unknown Rx traMADoL [Ultram] 50 mg PO Q6HR PRN #14 tablet 08/16/14 Unknown Rx Lisinopril/Hydrochlorothiazide 1 tab PO QDAY #60 tablet 08/29/14 Unknown Rx [Zestoretic 10-12.5 mg] Naproxen [Naprosyn] 500 mg PO BID #30 tablet 06/12/16 Unknown Rx Amoxicillin/K Clav Tab [Augmentin 1 tab PO Q12HR #20 tab 02/06/17 Unknown Rx 875MG TAB] Lidocaine Viscous 2% 15 ml MM TID #100 ml 02/06/17 Unknown Rx Acetaminophen [Non-Aspirin Extra 500 mg PO Q6HR PRN #30 tablet 09/10/18 Unknown Rx Strength] Ibuprofen [Motrin] 600 mg PO Q8H PRN #30 tablet 09/10/18 Unknown Rx Acetamin/Codeine 120-12Mg/5 ml 5 ml PO TID PRN #10 dose 10/02/18 Unknown Rx [Tylenol/Codeine 120-12 mg/5 ml] Amoxicillin [Amoxicillin TAB] 875 mg PO BID #20 tablet 10/02/18 Unknown Rx Ibuprofen [Motrin 800 MG tab] 800 mg PO Q8HR PRN #30 tablet 10/02/18 Unknown Rx Naproxen 500 mg PO BID PRN #30 tablet 12/18/18 Unknown Rx ED Physical Exam - General Limitations: No Limitations General appearance: alert, in no apparent distress, obese - Head Head exam: Present: atraumatic, normocephalic - Eye Eye exam: Present: normal appearance, EOMI. Absent: nystagmus - ENT ENT exam: Present: normal exam, normal orophraynx, mucous membranes moist, normal external ear exam - Neck Neck exam: Present: normal inspection, full ROM. Absent: tenderness, m eningismus - Respiratory Respiratory exam: Present: normal lung sounds bilaterally. Absent: respiratory distress, wheezes, rales, rhonchi, stridor, decreased breath sounds - Cardiovascular Cardiovascular Exam: Present: regular rate, normal rhythm, normal heart sounds. Absent: bradycardia, tachycardia, irregular rhythm, systolic murmur, diastolic murmur, rubs, gallop - GI/Abdominal GI/Abdominal exam: Present: soft, tenderness, other (There is left upper quadrant and epigastric tenderness to deep palpation. There is right upper quadrant tenderness to deep palpation. There is left lower quadrant tenderness to deep palpation). Absent: distended, guarding, rebound, rigid, pulsatile mass - Rectal Rectal exam: Present: normal inspection (Patient provides verbal consent for rectal examination, coat tailor by ERUM NOLASCO), heme (+) stool, black stool, other (Female coat tailor present, nurse Nicolas) - Extremities Exam Extremities exam: Present: normal inspection, full ROM, other (2+ pulses noted in the bilateral upper and lower extremities. There is no palpable cord. negative Homans sign. Muscular compartments are soft. The pelvis is stable.). Absent: pedal edema, calf tenderness - Back Exam Back exam: Present: normal inspection, full ROM. Absent: tenderness, CVA tenderness (R), CVA tenderness (L), paraspinal tenderness, vertebral tenderness - Neurological Exam Neurological exam: Present: alert, oriented X3, other (No facial droop. Tongue midline. Extraocular movements intact bilaterally. Facial sensation intact to light touch in V1, V2, V3 distribution bilaterally. 5 and a 5 strength in 4 extremities. Sensation intact to light touch in 4 extremities.). Absent: motor sensory deficit - Psychiatric Psychiatric exam: Present: normal affect, normal mood - Skin Skin exam: Present: warm, dry, intact, normal color. Absent: rash ED Course Vital Signs 07/18/21 07/18/21 09:02 09:05 Temperature 98.0 F 98.0 F Pulse Rate 114 H Respiratory 18 Rate Blood Pressure 151/89 O2 Sat by Pulse 100 Oximetry - Reevaluation(s) Reevaluation #1: 07/18/21 16:19 Differential diagnosis, include but not limited to: Upper GI bleed, angiodysplasia, colitis, diverticulitis, inflammatory bowel disease, cholecystitis, pancreatitis Assessment and plan: 55-year-old female with predominantly upper abdominal pain, black tarry stool, and complaints of black emesis. Very suspicious for upper GI bleed in the context of probable NSAID use. Patient is afebrile, with reassuring vital signs, protecting airway at this time and hemodynamically stable. Obtain EKG, appropriate laboratory studies, x-ray of the chest, CT scan of the abdomen pelvis. Start fluids, pain medication, nausea medication and Protonix. Reassess after initial diagnostics have resulted. Discussed with GI after initial diagnostics have resulted. Anticipate admission for probable upper GI bleed for urgent endoscopic evaluation. I discussed this with the patient. She articulated understanding. All questions answered. 07/18/21 17:12 Laboratory studies demonstrate decrease in hemoglobin and hematocrit. This is when compared to prior values from 2017. Remainder of laboratory studies reviewed and appreciated. I contacted gastroenterology on-call, Dr. Partida Discussed the patient's history, physical, laboratory studies and clinical impression. Admission is recommended, n.p.o. after midnight, start Protonix drip. Hospital physician, Dr. Natalya Guillen to admit to [facility] 07/18/21 19:47 CT scan of the abdomen pelvis is negative for acute findings. ED Medical Decision Making - Lab Data Result diagrams: 07/18/21 16:06 07/18/21 16:06 Vital Signs 07/18/21 07/18/21 09:02 09:05 Temperature 98.0 F 98.0 F Pulse Rate 114 H Respiratory 18 Rate Blood Pressure 151/89 O2 Sat by Pulse 100 Oximetry Lab Results 07/18/21 Range/Units 13:38 Urine Color Yellow (Yellow) Urine Turbidity Clear (Clear) Urine pH 6.0 (5.0-7.0) Ur Specific [place] 1.026 (1.003-1.030) Urine Protein <15 mg/dl (Negative) mg/dL Urine Glucose (UA) Neg (Negative) mg/dL Urine Ketones Tr (Negative) mg/dL Urine Blood Neg (Negative) Urine Nitrite Neg (Negative) Urine Bilirubin Neg (Negative) Urine Urobilinogen < 2.0 (<2.0) mg/dL Ur Leukocyte Esterase Sm (Negative) Urine WBC (Auto) 13.0 H (0.0-6.0) /HPF Urine RBC (Auto) 4.0 (0.0-6.0) /HPF U Epithel Cells (Auto) 11.0 (0-13.0) /HPF Urine Bacteria (Auto) 1+ (Negative) /HPF Urine Mucus 3+ /HPF Lab Results 07/18/21 07/18/21 07/18/21 Range/Units 13:38 16:06 16:06 WBC 10.7 (4.5-11.0) K/mm3 RBC 3.53 L (3.65-5.03) M/mm3 Hgb 9.2 L (10.1-14.3) gm/dl Hct 28.1 L (30.3-42.9) % MCV 79 (79-97) fl MCH 26 L (28-32) pg MCHC 33 (30-34) % RDW 15.5 H (13.2-15.2) % Plt Count 143 (140-440) K/mm3 Lymph % (Auto) 40.4 H (13.4-35.0) % [place] % (Auto) 7.6 H (0.0-7.3) % Eos % (Auto) 0.6 (0.0-4.3) % Baso % (Auto) 0.7 (0.0-1.8) % Lymph # (Auto) 4.3 (1.2-5.4) K/mm3 [place] # (Auto) 0.8 (0.0-0.8) K/mm3 Eos # (Auto) 0.1 (0.0-0.4) K/mm3 Baso # (Auto) 0.1 (0.0-0.1) K/mm3 Seg Neutrophils % 50.7 (40.0-70.0) % Seg Neutrophils # 5.4 (1.8-7.7) K/mm3 PT 13.6 (12.2-14.9) Sec. INR 0.94 (0.87-1.13) APTT 21.4 L (24.2-36.6) Sec. Urine Color Yellow (Yellow) Urine Turbidity Clear (Clear) Urine pH 6.0 (5.0-7.0) Ur Specific [place] 1.026 (1.003-1.030) Urine Protein <15 mg/dl (Negative) mg/dL Urine Glucose (UA) Neg (Negative) mg/dL Urine Ketones Tr (Negative) mg/dL Urine Blood Neg (Negative) Urine Nitrite Neg (Negative) Urine Bilirubin Neg (Negative) Urine Urobilinogen < 2.0 (<2.0) mg/dL Ur Leukocyte Esterase Sm (Negative) Urine WBC (Auto) 13.0 H (0.0-6.0) /HPF Urine RBC (Auto) 4.0 (0.0-6.0) /HPF U Epithel Cells (Auto) 11.0 (0-13.0) /HPF Urine Bacteria (Auto) 1+ (Negative) /HPF Urine Mucus 3+ /HPF Blood Type 07/18/21 Range/Units 16:06 WBC (4.5-11.0) K/mm3 RBC (3.65-5.03) M/mm3 Hgb (10.1-14.3) gm/dl Hct (30.3-42.9) % MCV (79-97) fl MCH (28-32) pg MCHC (30-34) % RDW (13.2-15.2) % Plt Count (140-440) K/mm3 Lymph % (Auto) (13.4-35.0) % [place] % (Auto) (0.0-7.3) % Eos % (Auto) (0.0-4.3) % Baso % (Auto) (0.0-1.8) % Lymph # (Auto) (1.2-5.4) K/mm3 [place] # (Auto) (0.0-0.8) K/mm3 Eos # (Auto) (0.0-0.4) K/mm3 Baso # (Auto) (0.0-0.1) K/mm3 Seg Neutrophils % (40.0-70.0) % Seg Neutrophils # (1.8-7.7) K/mm3 PT (12.2-14.9) Sec. INR (0.87-1.13) APTT (24.2-36.6) Sec. Urine Color (Yellow) Urine Turbidity (Clear) Urine pH (5.0-7.0) Ur Specific [place] (1.003-1.030) Urine Protein (Negative) mg/dL Urine Glucose (UA) (Negative) mg/dL Urine Ketones (Negative) mg/dL Urine Blood (Negative) Urine Nitrite (Negative) Urine Bilirubin (Negative) Urine Urobilinogen (<2.0) mg/dL Ur Leukocyte Esterase (Negative) Urine WBC (Auto) (0.0-6.0) /HPF Urine RBC (Auto) (0.0-6.0) /HPF U Epithel Cells (Auto) (0-13.0) /HPF Urine Bacteria (Auto) (Negative) /HPF Urine Mucus /HPF Blood Type A POSITIVE Vital Signs 07/18/21 07/18/21 09:02 09:05 Temperature 98.0 F 98.0 F Pulse Rate 114 H Respiratory 18 Rate Blood Pressure 151/89 O2 Sat by Pulse 100 Oximetry Lab Results 07/18/21 07/18/21 07/18/21 Range/Units 13:38 16:06 16:06 WBC 10.7 (4.5-11.0) K/mm3 RBC 3.53 L (3.65-5.03) M/mm3 Hgb 9.2 L (10.1-14.3) gm/dl Hct 28.1 L (30.3-42.9) % MCV 79 (79-97) fl MCH 26 L (28-32) pg MCHC 33 (30-34) % RDW 15.5 H (13.2-15.2) % Plt Count 143 (140-440) K/mm3 Lymph % (Auto) 40.4 H (13.4-35.0) % [place] % (Auto) 7.6 H (0.0-7.3) % Eos % (Auto) 0.6 (0.0-4.3) % Baso % (Auto) 0.7 (0.0-1.8) % Lymph # (Auto) 4.3 (1.2-5.4) K/mm3 [place] # (Auto) 0.8 (0.0-0.8) K/mm3 Eos # (Auto) 0.1 (0.0-0.4) K/mm3 Baso # (Auto) 0.1 (0.0-0.1) K/mm3 Seg Neutrophils % 50.7 (40.0-70.0) % Seg Neutrophils # 5.4 (1.8-7.7) K/mm3 PT 13.6 (12.2-14.9) Sec. INR 0.94 (0.87-1.13) APTT 21.4 L (24.2-36.6) Sec. Sodium (137-145) mmol/L Potassium (3.6-5.0) mmol/L Chloride (98-107) mmol/L Carbon Dioxide (22-30) mmol/L Anion Gap mmol/L BUN (7-17) mg/dL Creatinine (0.6-1.2) mg/dL Estimated GFR ml/min BUN/Creatinine Ratio % Glucose (65-100) mg/dL Calcium (8.4-10.2) mg/dL Magnesium (1.7-2.3) mg/dL Total Bilirubin (0.1-1.2) mg/dL AST (5-40) units/L ALT (7-56) units/L Alkaline Phosphatase (35-129) units/L Troponin T (0.00-0.029) ng/mL Total Protein (6.3-8.2) g/dL Albumin (3.9-5) g/dL Albumin/Globulin Ratio % Lipase (13-60) units/L Urine Color Yellow (Yellow) Urine Turbidity Clear (Clear) Urine pH 6.0 (5.0-7.0) Ur Specific [place] 1.026 (1.003-1.030) Urine Protein <15 mg/dl (Negative) mg/dL Urine Glucose (UA) Neg (Negative) mg/dL Urine Ketones Tr (Negative) mg/dL Urine Blood Neg (Negative) Urine Nitrite Neg (Negative) Urine Bilirubin Neg (Negative) Urine Urobilinogen < 2.0 (<2.0) mg/dL Ur Leukocyte Esterase Sm (Negative) Urine WBC (Auto) 13.0 H (0.0-6.0) /HPF Urine RBC (Auto) 4.0 (0.0-6.0) /HPF U Epithel Cells (Auto) 11.0 (0-13.0) /HPF Urine Bacteria (Auto) 1+ (Negative) /HPF Urine Mucus 3+ /HPF Blood Type Antibody Screen 07/18/21 07/18/21 07/18/21 Range/Units 16:06 16:06 16:06 WBC (4.5-11.0) K/mm3 RBC (3.65-5.03) M/mm3 Hgb (10.1-14.3) gm/dl Hct (30.3-42.9) % MCV (79-97) fl MCH (28-32) pg MCHC (30-34) % RDW (13.2-15.2) % Plt Count (140-440) K/mm3 Lymph % (Auto) (13.4-35.0) % [place] % (Auto) (0.0-7.3) % Eos % (Auto) (0.0-4.3) % Baso % (Auto) (0.0-1.8) % Lymph # (Auto) (1.2-5.4) K/mm3 [place] # (Auto) (0.0-0.8) K/mm3 Eos # (Auto) (0.0-0.4) K/mm3 Baso # (Auto) (0.0-0.1) K/mm3 Seg Neutrophils % (40.0-70.0) % Seg Neutrophils # (1.8-7.7) K/mm3 PT (12.2-14.9) Sec. INR (0.87-1.13) APTT (24.2-36.6) Sec. Sodium 140 (137-145) mmol/L Potassium 4.1 (3.6-5.0) mmol/L Chloride 103.4 (98-107) mmol/L Carbon Dioxide 24 (22-30) mmol/L Anion Gap 17 mmol/L BUN 16 (7-17) mg/dL Creatinine 0.6 (0.6-1.2) mg/dL Estimated GFR > 60 ml/min BUN/Creatinine Ratio 27 % Glucose 91 (65-100) mg/dL Calcium 9.3 (8.4-10.2) mg/dL Magnesium 2.20 (1.7-2.3) mg/dL Total Bilirubin 0.20 (0.1-1.2) mg/dL AST 25 (5-40) units/L ALT 21 (7-56) units/L Alkaline Phosphatase 79 (35-129) units/L Troponin T < 0.010 (0.00-0.029) ng/mL Total Protein 6.5 (6.3-8.2) g/dL Albumin 4.1 (3.9-5) g/dL Albumin/Globulin Ratio 1.7 % Lipase 33 (13-60) units/L Urine Color (Yellow) Urine Turbidity (Clear) Urine pH (5.0-7.0) Ur Specific [place] (1.003-1.030) Urine Protein (Negative) mg/dL Urine Glucose (UA) (Negative) mg/dL Urine Ketones (Negative) mg/dL Urine Blood (Negative) Urine Nitrite (Negative) Urine Bilirubin (Negative) Urine Urobilinogen (<2.0) mg/dL Ur Leukocyte Esterase (Negative) Urine WBC (Auto) (0.0-6.0) /HPF Urine RBC (Auto) (0.0-6.0) /HPF U Epithel Cells (Auto) (0-13.0) /HPF Urine Bacteria (Auto) (Negative) /HPF Urine Mucus /HPF Blood Type A POSITIVE Antibody Screen Negative - EKG Data -: EKG Interpreted by [place] EKG shows normal: sinus rhythm Rate: normal - EKG Data 07/18/21 16:18 The EKG is interpreted at 15: 59 Sinus rhythm, 91 bpm. Normal axis, normal P wave axis, left ventricular hypertrophy, intervals within normal limits, this is not a STEMI - Radiology Data Radiology results: pending, report reviewed, image reviewed X-ray the chest is negative for acute findings CT ABDOMEN AND PELVIS WITH IV CONTRAST INDICATION: acute abd pain gi bleed. COMPARISON: None available. TECHNIQUE: Axial CT images were obtained through the abdomen and pelvis after 100 mL Omnipaque [address] scans at this location are performed using CT dose reduction for ALARA by means of automated exposure control. FINDINGS -- ABDOMEN: Lung Bases: No acute abnormality. Liver: Normal. Gallbladder: Normal. Bile Ducts: Normal. Pancreas: Normal. Spleen: Normal. Adrenals: Normal. Right Kidney and Proximal Ureter: Normal. Left Kidney and Proximal Ureter: Normal. Stomach and Bowel: Normal. Lymph Nodes: No significant adenopathy. Aorta: No significant abnormality. IVC: Normal. Additional Findings: None. FINDINGS -- PELVIS: Urinary Bladder and Distal Ureters: Normal. Reproductive Organs: Multiple uterine calcifications concerning for uterine fibroids.. Appendix: Normal. Bowel: No acute abnormality. Sigmoid diverticulosis. Free Fluid: None. Lymph Nodes: No significant adenopathy. Additional Findings: None. Skeletal System: No acute abnormality. IMPRESSION: 1. No acute process in the abdomen or pelvis. Sigmoid diverticulosis without diverticulitis. Signer Name: Hao Alejandro MD Signed: 07/18/2021 6:30 PM Workstation Name: [email or web address] [email or web address] 1 VIEW 07/18/2021 3:11 PM INDICATION / CLINICAL INFORMATION: epigastric pain gi bleed. COMPARISON: None available. FINDINGS: SUPPORT DEVICES: None. HEART / MEDIASTINUM: No significant abnormality. LUNGS / PLEURA: No significant pulmonary or pleural abnormality. No pneumothorax. ADDITIONAL FINDINGS: No significant additional findings. IMPRESSION: 1. No acute findings. Signer Name: Brad Escobar MD Signed: 07/18/2021 3:13 PM Workstation Name: [id number] Critical care attestation.: If time is entered above; I have spent that time in minutes in the direct care of this critically ill patient, excluding procedure time. ED Disposition Clinical Impression: Acute abdominal pain, Upper GI bleed, Black stool, Anemia Disposition: 09 ADMITTED INPATIENT Is pt being admited?: Yes Does the pt Need Aspirin: No Condition: Good
--- NOTE | 2021-07-18 16:17 | XRay Report ---
CHEST 1 VIEW 07/18/2021 3:11 PM INDICATION / CLINICAL INFORMATION: epigastric pain gi bleed. COMPARISON: None available. FINDINGS: SUPPORT DEVICES: None. HEART / MEDIASTINUM: No significant abnormality. LUNGS / PLEURA: No significant pulmonary or pleural abnormality. No pneumothorax. ADDITIONAL FINDINGS: No significant additional findings. IMPRESSION: 1. No acute findings. Signer Name: Brad Escobar MD Signed: 07/18/2021 4:13 PM Workstation Name: [id number]
[2021-07-18 16:39] LABS: Basophils # (Auto) 0.1 K/mm3 (0.0-0.1); Basophils % (Auto) 0.7 % (0.0-1.8); Eosinophils # (Auto) 0.1 K/mm3 (0.0-0.4); Eosinophils % (Auto) 0.6 % (0.0-4.3); Hematocrit 28.1 % (30.3-42.9); Hemoglobin 9.2 gm/dl (10.1-14.3); Lymphocytes # (Auto) 4.3 K/mm3 (1.2-5.4); Lymphocytes % (Auto) 40.4 % (13.4-35.0); Mean Corpuscular HGB Conc 33 % (30-34); Mean Corpuscular Volume 79 fl (79-97); Monocytes # (Auto) 0.8 K/mm3 (0.0-0.8); Monocytes % (Auto) 7.6 % (0.0-7.3); Platelet Count 143 K/mm3 (140-440); Red Blood Count 3.53 M/mm3 (3.65-5.03); Red Cell Distribution Width 15.5 % (13.2-15.2)
[2021-07-18 16:49] LABS: INR 0.94 (0.87-1.13)
[2021-07-18 16:50] LABS: Partial Thromboplastin Time 21.4 Sec. (24.2-36.6)
[2021-07-18 17:01] LABS: Alanine Aminotransferase 21 units/L (7-56); Albumin 4.1 g/dL (3.9-5); Blood Urea Nitrogen 16 mg/dL (7-17); Calcium 9.3 mg/dL (8.4-10.2); Hemolysis Index 6
[2021-07-18 17:11] LABS: BUN/Creatinine Ratio 27
[2021-07-18] MEDS ORDERED: MORPHINE 2 MG/1 ML INJ IV PRN (18:35)
[2021-07-18] MEDS ORDERED: ONDANSETRON 4 MG/2 ML INJ IV PRN (18:35)
[2021-07-18] MEDS ORDERED: ACETAMINOPHEN 325 MG TAB PO PRN (18:35)
[2021-07-18] MEDS ORDERED: METOCLOPRAMIDE 10 MG/2 ML INJ IV PRN (18:35)
--- NOTE | 2021-07-18 18:35 | History and Physical Report ---
History of Present Illness Date of examination: 07/18/21 Date of admission: 07/18/2021 Chief complaint: Coffee-ground emesis and black stools for 1 day History of present illness: 55-year-old with history of hypertension and osteoarthritis who takes Goody powders and naproxen, then for coffee-ground emesis and black tarry stools since yesterday. Patient has been taking pain medication for lower back pain. Takes Goody powders on a regular basis. Patient has epigastric pain which is sharp radiating to the back. No prior history of GI bleeding. No syncope. No lightheadedness. - Past Medical History --Hypertension: Yes - Surgical History Past Surgical History?: No Additional Surgical History: finger - Social History Smoking Status: Never Smoker Substance Use Type: None - Medications Home Medications: Home Medications Medication Instructions Recorded Confirmed Last Taken Type Ibuprofen [Motrin] 400 mg PO Q8H PRN #20 tablet 06/18/14 06/26/14 06/26/14 Rx Sulfamethoxazole/Trimethoprim 1 each PO BID #20 tablet 06/18/14 06/26/1406/25 Rx [Bactrim Ds] Benzonatate [Tessalon Perles] 100 mg PO Q8HR #10 capsule 06/26/14 Unknown Rx Ibuprofen [Motrin 600 MG tab] 600 mg PO Q8H PRN #14 tablet 06/26/14 Unknown Rx Clotrimazole 1% [Lotrimin 1%] 1 applic TP BID #2 tube 08/16/14 Unknown Rx Ibuprofen [Motrin] 800 mg PO Q8H PRN #30 tablet 08/16/14 Unknown Rx cephALEXin [Keflex] 500 mg PO Q6H #28 capsule 08/16/14 Unknown Rx lisinopriL [Zestril TAB] 10 mg PO QDAY #90 tablet 08/16/14 Unknown Rx traMADoL [Ultram] 50 mg PO Q6HR PRN #14 tablet 08/16/14 Unknown Rx Lisinopril/Hydrochlorothiazide 1 tab PO QDAY #60 tablet 08/29/14 Unknown Rx [Zestoretic 10-12.5 mg] Naproxen [Naprosyn] 500 mg PO BID #30 tablet 06/12/16 Unknown Rx Amoxicillin/K Clav Tab [Augmentin 1 tab PO Q12HR #20 tab 02/06/17 Unknown Rx 875MG TAB] Lidocaine Viscous 2% 15 ml MM TID #100 ml 02/06/17 Unknown Rx Acetaminophen [Non-Aspirin Extra 500 mg PO Q6HR PRN #30 tablet 09/10/18 Unknown Rx Strength] Ibuprofen [Motrin] 600 mg PO Q8H PRN #30 tablet 09/10/18 Unknown Rx Acetamin/Codeine 120-12Mg/5 ml 5 ml PO TID PRN #10 dose 10/02/18 Unknown Rx [Tylenol/Codeine 120-12 mg/5 ml] Amoxicillin [Amoxicillin TAB] 875 mg PO BID #20 tablet 10/02/18 Unknown Rx Ibuprofen [Motrin 800 MG tab] 800 mg PO Q8HR PRN #30 tablet 10/02/18 Unknown Rx Naproxen 500 mg PO BID PRN #30 tablet 12/18/18 Unknown Rx Review of Systems ROS: Stated complaint: ABD PAIN Other details as noted in HPI Constitutional: denies: fever Eyes: denies: eye discharge ENT: denies: epistaxis Respiratory: denies: wheezing Cardiovascular: denies: chest pain Gastrointestinal: abdominal pain, nausea, vomiting, hematemesis, melena. denie s: hematochezia Musculoskeletal: back pain Neurological: denies: weakness Medications and Allergies Allergies Allergy/AdvReac Type Severity Reaction Status Date / Time No Known Allergies Allergy Verified 10/02/18 09:15 Home Medications Medication Instructions Recorded Confirmed Last Taken Type Ibuprofen [Motrin] 400 mg PO Q8H PRN #20 tablet 06/18/14 06/26/14 06/26/14 Rx Sulfamethoxazole/Trimethoprim 1 each PO BID #20 tablet 06/18/14 06/26/14 06/25/14 Rx [Bactrim Ds] Benzonatate [Tessalon Perles] 100 mg PO Q8HR #10 capsule 06/26/14 Unknown Rx Ibuprofen [Motrin 600 MG tab] 600 mg PO Q8H PRN #14 tablet 06/26/14 Unknown Rx Clotrimazole 1% [Lotrimin 1%] 1 applic TP BID #2 tube 08/16/14 Unknown Rx Ibuprofen [Motrin] 800 mg PO Q8H PRN #30 tablet 08/16/14 Unknown Rx cephALEXin [Keflex] 500 mg PO Q6H #28 capsule 08/16/14 Unknown Rx lisinopriL [Zestril TAB] 10 mg PO QDAY #90 tablet 08/16/14 Unknown Rx traMADoL [Ultram] 50 mg PO Q6HR PRN #14 tablet 08/16/14 Unknown Rx Lisinopril/Hydrochlorothiazide 1 tab PO QDAY #60 tablet 08/29/14 Unknown Rx [Zestoretic 10-12.5 mg] Naproxen [Naprosyn] 500 mg PO BID #30 tablet 06/12/16 Unknown Rx Amoxicillin/K Clav Tab [Augmentin 1 tab PO Q12HR #20 tab 02/06/17 Unknown Rx 875MG TAB] Lidocaine Viscous 2% 15 ml MM TID #100 ml 02/06/17 Unknown Rx Acetaminophen [Non-Aspirin Extra 500 mg PO Q6HR PRN #30 tablet 09/10/18 Unknown Rx Strength] Ibuprofen [Motrin] 600 mg PO Q8H PRN #30 tablet 09/10/18 Unknown Rx Acetamin/Codeine 120-12Mg/5 ml 5 ml PO TID PRN #10 dose 10/02/18 Unknown Rx [Tylenol/Codeine 120-12 mg/5 ml] Amoxicillin [Amoxicillin TAB] 875 mg PO BID #20 tablet 10/02/18 Unknown Rx Ibuprofen [Motrin 800 MG tab] 800 mg PO Q8HR PRN #30 tablet 10/02/18 Unknown Rx Naproxen 500 mg PO BID PRN #30 tablet 12/18/18 Unknown Rx Active Meds: Active Medications Pantoprazole Sodium 80 mg/ (Sodium Chloride) 100 mls @ 10 mls/hr IV DIRECT LILLY Exam - Constitutional Vitals: Temp Pulse Resp BP Pulse Ox 98.0 F 114 H 18 151/89 100 07/18/21 09:05 07/18/21 09:05 07/18/21 09:05 07/18/21 09:05 07/18/21 09:05 General appearance: Present: no acute distress, well-nourished - EENT Eyes: Present: PERRL ENT: hearing intact, clear oral mucosa - Neck Neck: Present: supple, normal ROM - Respiratory Respiratory effort: normal Respiratory: bilateral: CTA - Cardiovascular Heart rate: 78 Rhythm: regular Heart Sounds: Present: S1 & S2. Absent: rub, click - Extremities Extremities: no ischemia, pulses intact, pulses symmetrical, No edema Peripheral Pulses: within normal limits - Abdominal General gastrointestinal: Present: soft, tender, non-distended, normal bowel sounds Localized gastrointestinal: tender: diffuse Female genitourinary: Present: normal - Integumentary Integumentary: Present: clear, warm, dry - Musculoskeletal Musculoskeletal: gait normal, strength equal bilaterally - Psychiatric Psychiatric: appropriate mood/affect, intact judgment & insight - Neurologic Neurologic: CNII-XII intact, moves all extremities - Allied Health Allied health notes reviewed: nursing, case management HEART Score - HEART Score Troponin: Troponin T < 0.010 ng/mL (0.00-0.029) 07/18/21 16:06 Results - Labs CBC & Chem 7: 07/18/21 16:06 07/18/21 16:06 Labs: Laboratory Last Values WBC 10.7 K/mm3 (4.5-11.0) 07/18/21 16:06 RBC 3.53 M/mm3 (3.65-5.03) L 07/18/21 16:06 Hgb 9.2 gm/dl (10.1-14.3) L 07/18/21 16:06 Hct 28.1 % (30.3-42.9) L 07/18/21 16:06 MCV 79 fl (79-97) 07/18/21 16:06 MCH 26 pg (28-32) L 07/18/21 16:06 MCHC 33 % (30-34) 07/18/21 16:06 RDW 15.5 % (13.2-15.2) H 07/18/21 16:06 Plt Count 143 K/mm3 (140-440) 07/18/21 16:06 Lymph % (Auto) 40.4 % (13.4-35.0) H 07/18/21 16:06 [place] % (Auto) 7.6 % (0.0-7.3) H 07/18/21 16:06 Eos % (Auto) 0.6 % (0.0-4.3) 07/18/21 16:06 Baso % (Auto) 0.7 % (0.0-1.8) 07/18/21 16:06 Lymph # (Auto) 4.3 K/mm3 (1.2-5.4) 07/18/21 16:06 [place] # (Auto) 0.8 K/mm3 (0.0-0.8) 07/18/21 16:06 Eos # (Auto) 0.1 K/mm3 (0.0-0.4) 07/18/21 16:06 Baso # (Auto) 0.1 K/mm3 (0.0-0.1) 07/18/21 16:06 Seg Neutrophils % 50.7 % (40.0-70.0) 07/18/21 16:06 Seg Neutrophils # 5.4 K/mm3 (1.8-7.7) 07/18/21 16:06 PT 13.6 Sec. (12.2-14.9) 07/18/21 16:06 INR 0.94 (0.87-1.13) 07/18/21 16:06 APTT 21.4 Sec. (24.2-36.6) L 07/18/21 16:06 Sodium 140 mmol/L (137-145) 07/18/21 16:06 Potassium 4.1 mmol/L (3.6-5.0) 07/18/21 16:06 Chloride 103.4 mmol/L (98-107) 07/18/21 16:06 Carbon Dioxide 24 mmol/L (22-30) 07/18/21 16:06 Anion Gap 17 mmol/L 07/18/21 16:06 BUN 16 mg/dL (7-17) 07/18/21 16:06 Creatinine 0.6 mg/dL (0.6-1.2) 07/18/21 16:06 Estimated GFR > 60 ml/min 07/18/21 16:06 BUN/Creatinine Ratio 27 % 07/18/21 16:06 Glucose 91 mg/dL (65-100) 07/18/21 16:06 Calcium 9.3 mg/dL (8.4-10.2) 07/18/21 16:06 Magnesium 2.20 mg/dL (1.7-2.3) 07/18/21 16:06 Total Bilirubin 0.20 mg/dL (0.1-1.2) 07/18/21 16:06 AST 25 units/L (5-40) 07/18/21 16:06 ALT 21 units/L (7-56) 07/18/21 16:06 Alkaline Phosphatase 79 units/L (35-129) 07/18/21 16:06 Troponin T < 0.010 ng/mL (0.00-0.029) 07/18/21 16:06 Total Protein 6.5 g/dL (6.3-8.2) 07/18/21 16:06 Albumin 4.1 g/dL (3.9-5) 07/18/21 16:06 Albumin/Globulin Ratio 1.7 % 07/18/21 16:06 Lipase 33 units/L (13-60) 07/18/21 16:06 Urine Color Yellow (Yellow) 07/18/21 13:38 Urine Turbidity Clear (Clear) 07/18/21 13:38 Urine pH 6.0 (5.0-7.0) 07/18/21 13:38 Ur Specific Lovely 1.026 (1.003-1.030) 07/18/21 13:38 Urine Protein <15 mg/dl mg/dL (Negative) 07/18/21 13:38 Urine Glucose (UA) Neg mg/dL (Negative) 07/18/21 13:38 Urine Ketones Tr mg/dL (Negative) 07/18/21 13:38 Urine Blood Neg (Negative) 07/18/21 13:38 Urine Nitrite Neg (Negative) 07/18/21 13:38 Urine Bilirubin Neg (Negative) 07/18/21 13:38 Urine Urobilinogen < 2.0 mg/dL (<2.0) 07/18/21 13:38 Ur Leukocyte Esterase Sm (Negative) 07/18/21 13:38 Urine WBC (Auto) 13.0 /HPF (0.0-6.0) H 07/18/21 13:38 Urine RBC (Auto) 4.0 /HPF (0.0-6.0) 07/18/21 13:38 U Epithel Cells (Auto) 11.0 /HPF (0-13.0) 07/18/21 13:38 Urine Bacteria (Auto) 1+ /HPF (Negative) 07/18/21 13:38 Urine Mucus 3+ /HPF 07/18/21 13:38 Blood Type A POSITIVE 07/18/21 16:06 Antibody Screen Negative 07/18/21 16:06 Short CBC 07/18/21 Range/Units 16:06 WBC 10.7 (4.5-11.0) K/mm3 Hgb 9.2 L (10.1-14.3) gm/dl Hct 28.1 L (30.3-42.9) % Plt Count 143 (140-440) K/mm3 BMP 07/18/21 16:06 Sodium 140 Potassium 4.1 Chloride 103.4 Carbon Dioxide 24 BUN 16 Creatinine 0.6 Glucose 91 Calcium 9.3 Cardiac Enzymes 07/18/21 Range/Units 16:06 Troponin T < 0.010 (0.00-0.029) ng/mL Liver Function 07/18/21 Range/Units 16:06 Total Bilirubin 0.20 (0.1-1.2) mg/dL AST 25 (5-40) units/L ALT 21 (7-56) units/L Alkaline Phosphatase 79 (35-129) units/L Albumin 4.1 (3.9-5) g/dL Urine 07/18/21 Range/Units 13:38 Urine Color Yellow (Yellow) Urine pH 6.0 (5.0-7.0) Ur Specific Lovely 1.026 (1.003-1.030) Urine Protein <15 mg/dl (Negative) mg/dL Urine Glucose (UA) Neg (Negative) mg/dL Microbiology: Microbiology 07/18/21 16:16 Stool - Stool Aspirate Stool Occult Blood (NANDINI) - Final - Imaging and Cardiology Imaging and Cardiology: Abdominal CAT scan No acute process in the abdomen or pelvis. Sigmoid diverticulosis without diverticulitis. Assessment and Plan Advance Directives: Yes (Full code) VTE prophylaxis?: Chemical Plan of care discussed with patient/family: Yes - Patient Problems (1) Upper GI bleed Current Visit: Yes Status: Acute Plan to address problem: Upper GI bleed secondary to Goody powders and NSAIDs Serial hematocrit and hemoglobin Transfuse if necessary--if H&H below 7.5 IV Protonix drip GI consult (2) Hypertension Current Visit: Yes Status: Chronic Qualifiers: Hypertension type: primary hypertension Qualified Code(s): I10 - Essential (primary) hypertension Plan to address problem: Will hold the blood pressure medicine for the time being Patient is n.p.o. (3) Low back pain Current Visit: Yes Status: Chronic Qualifiers: Chronicity: chronic Plan to address problem: Analgesics as necessary (4) Urinary tract infection Current Visit: Yes Status: Acute Qualifiers: Urinary tract infection type: acute cystitis Plan to address problem: IV Rocephin for now (5) Advance care planning Current Visit: Yes Status: Acute Plan to address problem: Ezequiel's education conducted care plan discussed, diagnosis discussed, prognosis discussed. Patient is full code. Patient acknowledges understanding and agreement with care plan. +30 minutes. (6) DVT prophylaxis Current Visit: Yes Status: Acute Plan to address problem: On SCDs and GI prophylaxis (7) Anemia Current Visit: Yes Status: Chronic Qualifiers: Anemia type: iron deficiency Plan to address problem: Anemia work-up for now Probably secondary to GI bleed
[2021-07-18] MEDS ORDERED: D5W/0.9% NACL 1,000 ML IV SCH (19:00)
--- NOTE | 2021-07-18 19:34 | Cat Scan Report ---
CT ABDOMEN AND PELVIS WITH IV CONTRAST INDICATION: acute abd pain gi bleed. COMPARISON: None available. TECHNIQUE: Axial CT images were obtained through the abdomen and pelvis after 100 mL Omnipaque [address] scans at this location are performed using CT dose reduction for ALARA by means of automated e xposure control. FINDINGS -- ABDOMEN: Lung Bases: No acute abnormality. Liver: Normal. Gallbladder: Normal. Bile Ducts: Normal. Pancreas: Normal. Spleen: Normal. Adrenals: Normal. Right Kidney and Proximal Ureter: Normal. Left Kidney and Proximal Ureter: Normal. Stomach and Bowel: Normal. Lymph Nodes: No significant adenopathy. Aorta: No significant abnormality. IVC: Normal. Additional Findings: None. FINDINGS -- PELVIS: Urinary Bladder and Distal Ureters: Normal. Reproductive Organs: Multiple uterine calcifications concerning for uterine fibroids.. Appendix: Normal. Bowel: No acute abnormality. Sigmoid diverticulosis. Free Fluid: None. Lymph Nodes: No significant adenopathy. Additional Findings: None. Skeletal System: No acute abnormality. IMPRESSION: 1. No acute process in the abdomen or pelvis. Sigmoid diverticulosis without diverticulitis. Signer Name: Hao Alejandro MD Signed: 07/18/2021 7:30 PM Workstation Name: [id number]
[2021-07-18] MEDS ORDERED: SODIUM CHLORIDE 0.9% 1000 ML 1,000 ML ONE (20:29)
[2021-07-18] MEDS: PANTOPRAZOLE 80 MG in SODIUM CHLORIDE 0.9% 100 ML IV SCH ×2 (20:32→23:18)
[2021-07-19 07:17] LABS: Basophils % (Auto) 0.8 % (0.0-1.8); Eosinophils # (Auto) 0.1 K/mm3 (0.0-0.4); Eosinophils % (Auto) 1.7 % (0.0-4.3); Hematocrit 26.2 % (30.3-42.9); Hemoglobin 8.4 gm/dl (10.1-14.3); Lymphocytes # (Auto) 2.9 K/mm3 (1.2-5.4); Lymphocytes % (Auto) 46.1 % (13.4-35.0); Mean Corpuscular HGB Conc 32 % (30-34); Mean Corpuscular Volume 81 fl (79-97); Monocytes # (Auto) 0.5 K/mm3 (0.0-0.8); Monocytes % (Auto) 8.5 % (0.0-7.3); Platelet Count 134 K/mm3 (140-440); Red Blood Count 3.24 M/mm3 (3.65-5.03); Red Cell Distribution Width 15.8 % (13.2-15.2)
[2021-07-19 07:32] LABS: Alanine Aminotransferase 16 units/L (7-56); Albumin 3.4 g/dL (3.9-5); Blood Urea Nitrogen 10 mg/dL (7-17); Calcium 8.4 mg/dL (8.4-10.2); Hemolysis Index 0
[2021-07-19 07:46] LABS: BUN/Creatinine Ratio 17
--- NOTE | 2021-07-19 10:16 | Electrocardiograph Report ---
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
[2021-07-19] MEDS ORDERED: SODIUM CHLORIDE 0.9% 1000 ML 1,000 ML ONE (11:04)
[2021-07-19] MEDS ORDERED: EPINEPHrine 1 MG/10 ML SYRINGE ONE (11:04)
--- NOTE | 2021-07-19 11:36 | Anesthesia Consultation ---
Anesthesia Consult and Med Hx Date of service: 07/19/21 - Airway Anesthetic Teeth Evaluation: Crowns (Multiple missing teeth) ROM Head & Neck: Adequate Mental/Hyoid Distance: Adequate Mallampati Class: Class II Intubation Access Assessment: Probably Good - Pulmonary Exam CTA: Yes - Pre-Operative Health Status ASA Pre-Surgery Classification: ASA3, Emergency Proposed Anesthetic Plan: MAC - Pulmonary Hx Smoking: No Hx Respiratory Symptoms: No Hx Sleep Apnea: No (Snores) - Cardiovascular System Hx Hypertension: Yes Hx Heart Attack/AMI: No Hx Angina: No - Central Nervous System Hx Seizures: No Hx Back Pain: Yes Hx Psychiatric Problems: No - Endocrine Hx Renal Disease: No Hx Liver Disease: No Hx Insulin Dependent Diabetes: No Hx Non-Insulin Dependent Diabetes: No Hx Thyroid Disease: No - Hematic Hx Anemia: Yes - Other Systems Hx Alcohol Use: No Hx Substance Use: No Hx Obesity: Yes (BMI:40.3kg) - Additional Comments Anesthesia Medical History Comments: Patient denied previous anesthesia related complications
--- NOTE | 2021-07-19 11:37 | Anesthesia Day of Surgery ---
Anesthesia Day of Surgery - Day of Surgery Patient Examined: Yes Patient H&P Reviewed: Yes Patient is NPO: Yes Beta Blockers: No Cardiac Clearance: No Pulmonary Clearance: No Candido's Test: N/A
[2021-07-19] MEDS ORDERED: propofoL 200 MG/20 ML VIAL IV ONE (11:42)
[2021-07-19] MEDS ORDERED: fentaNYL 100 MCG/2 ML INJ ONE (11:42)
[2021-07-19] MEDS ORDERED: LIDOCAINE MPF (2%) 20 MG/1 ML VIAL 5 ML ONE (11:42)
[2021-07-19] MEDS ORDERED: ONDANSETRON 4 MG/2 ML INJ ONE (11:42)
--- NOTE | 2021-07-19 12:11 | Consultation ---
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 She also had black stool for 2 days, occurring once a day. She presented to the emergency room. She does take Goody's fairly regularly though not necessarily daily. She denies prior history of GI bleeding. There is been no weight loss. There is no history of ethanol use. She denies weight loss. There is no history of peptic ulcer disease. Medications reviewed. Past History Past Medical History: hypertension Past Surgical History: No surgical history Social history: other (Works at a [employer]). denies: smoking, alcohol abuse Family history: no significant family history Medications and Allergies Allergies Allergy/AdvReac Type Severity Reaction Status Date / Time No Known Allergies Allergy Verified 10/02/18 09:15 Home Medications Medication Instructions Recorded Confirmed Last Taken Type Ibuprofen [Motrin] 400 mg PO Q8H PRN #20 tablet 06/18/14 06/26/14 06/26/14 Rx Sulfamethoxazole/Trimethoprim 1 each PO BID #20 tablet 06/18/14 06/26/14 06/25/14 Rx [Bactrim Ds] Benzonatate [Tessalon Perles] 100 mg PO Q8HR #10 capsule 06/26/14 Unknown Rx Ibuprofen [Motrin 600 MG tab] 600 mg PO Q8H PRN #14 tablet 06/26/14 Unknown Rx Clotrimazole 1% [Lotrimin 1%] 1 applic TP BID #2 tube 08/16/14 Unknown Rx Ibuprofen [Motrin] 800 mg PO Q8H PRN #30 tablet 08/16/14 Unknown Rx cephALEXin [Keflex] 500 mg PO Q6H #28 capsule 08/16/14 Unknown Rx lisinopriL [Zestril TAB] 10 mg PO QDAY #90 tablet 08/16/14 Unknown Rx traMADoL [Ultram] 50 mg PO Q6HR PRN #14 tablet 08/16/14 Unknown Rx Lisinopril/Hydrochlorothiazide 1 tab PO QDAY #60 tablet 08/29/14 Unknown Rx [Zestoretic 10-12.5 mg] Naproxen [Naprosyn] 500 mg PO BID #30 tablet 06/12/16 Unknown Rx Amoxicillin/K Clav Tab [Augmentin 1 tab PO Q12HR #20 tab 02/06/17 Unknown Rx 875MG TAB] Lidocaine Viscous 2% 15 ml MM TID #100 ml 02/06/17 Unknown Rx Acetaminophen [Non-Aspirin Extra 500 mg PO Q6HR PRN #30 tablet 09/10/18 Unknown Rx Strength] Ibuprofen [Motrin] 600 mg PO Q8H PRN #30 tablet 09/10/18 Unknown Rx Acetamin/Codeine 120-12Mg/5 ml 5 ml PO TID PRN #10 dose 10/02/18 Unknown Rx [Tylenol/Codeine 120-12 mg/5 ml] Amoxicillin [Amoxicillin TAB] 875 mg PO BID #20 tablet 10/02/18 Unknown Rx Ibuprofen [Motrin 800 MG tab] 800 mg PO Q8HR PRN #30 tablet 10/02/18 Unknown Rx Naproxen 500 mg PO BID PRN #30 tablet 12/18/18 Unknown Rx Active Meds: Active Medications Acetaminophen (Acetaminophen 325 Mg Tab) 650 mg PO Q4H PRN PRN Reason: Pain MILD(1-3)/Fever >100.5/GALDAMEZ Pantoprazole Sodium 80 mg/ (Sodium Chloride) 100 mls @ 10 mls/hr IV DIRECT [facility] Last Admin: 07/18/21 23:18 Dose: 8 mg/hr, 10 mls/hr Dextrose/Sodium Chloride (D5ns) 1,000 mls @ 75 mls/hr IV DIRECT [facility] Last Admin: 07/18/21 22:52 Dose: 75 mls/hr Metoclopramide HCl (Metoclopramide 10 Mg/2 Ml Inj) 10 mg IV Q6H PRN PRN Reason: Nausea And Vomiting Morphine Sulfate (Morphine 2 Mg/1 Ml Inj) 2 mg IV Q4H PRN PRN Reason: Pain, Moderate (4-6) Ondansetron HCl (Ondansetron 4 Mg/2 Ml Inj) 4 mg IV Q3H PRN PRN Reason: Nausea And Vomiting Sodium Chloride (Sodium Chloride 0.9% 10 Ml Flush Syringe) 10 ml IV BID [facility] Last Admin: 07/18/21 22:54 Dose: 10 ml Sodium Chloride (Sodium Chloride 0.9% 10 Ml Flush Syringe) 10 ml IV PRN PRN PRN Reason: LINE FLUSH Review of Systems All systems: negative (As noted above) Exam - Constitutional Vitals: Temp Pulse Resp BP Pulse Ox 98.1 F 91 H 16 132/78 100 07/19/21 11:00 07/19/21 11:00 07/19/21 11:00 07/19/21 11:00 07/19/21 11:00 General appearance: Present: no acute distress - EENT Eyes: Present: PERRL, EOM intact ENT: hearing intact - Respiratory Respiratory effort: normal Respiratory: bilateral: CTA - Cardiovascular Rhythm: regular Heart Sounds: Present: S1 & S2 - Abdominal General gastrointestinal: Present: soft, tender (Mild epigastric), normal bowel sounds Results - Labs CBC & Chem 7: 07/19/21 07:13 07/19/21 07:09 Labs: Abnormal lab results 07/18/21 07/18/21 07/18/21 Range/Units 13:38 16:06 16:06 RBC 3.53 L (3.65-5.03) M/mm3 Hgb 9.2 L (10.1-14.3) gm/dl Hct 28.1 L (30.3-42.9) % MCH 26 L (28-32) pg RDW 15.5 H (13.2-15.2) % Plt Count (140-440) K/mm3 Lymph % (Auto) 40.4 H (13.4-35.0) % [place] % (Auto) 7.6 H (0.0-7.3) % APTT 21.4 L (24.2-36.6) Sec. Chloride (98-107) mmol/L Glucose (65-100) mg/dL Total Protein (6.3-8.2) g/dL Albumin (3.9-5) g/dL Urine WBC (Auto) 13.0 H (0.0-6.0) /HPF 07/19/21 07/19/21 Range/Units 07:09 07:13 RBC 3.24 L (3.65-5.03) M/mm3 Hgb 8.4 L (10.1-14.3) gm/dl Hct 26.2 L (30.3-42.9) % MCH 26 L (28-32) pg RDW 15.8 H (13.2-15.2) % Plt Count 134 L (140-440) K/mm3 Lymph % (Auto) 46.1 H (13.4-35.0) % [place] % (Auto) 8.5 H (0.0-7.3) % APTT (24.2-36.6) Sec. Chloride 108.5 H (98-107) mmol/L Glucose 102 H (65-100) mg/dL Total Protein 5.5 L (6.3-8.2) g/dL Albumin 3.4 L (3.9-5) g/dL Urine WBC (Auto) (0.0-6.0) /HPF - Imaging and Cardiology CT scan - abdomen: report reviewed (Sigmoid diverticulosis, uterine fibroids) Assessment and Plan 1. GI bleedlikely upper GI bleed given history of Goody's, melena, and history of dark emesis. Patient is anemic. We will do upper endoscopy. Monitor hemoglobin and transfuse as needed. PPI Avoid Goody's powder
--- NOTE | 2021-07-19 12:14 | Post Operative Note ---
Pre-op diagnosis: Melena Post-op diagnosis: other (Antral ulcer, no stigmata of bleeding) Findings: 1. 1 cm white-based antral ulcer with antral deformity. No stigmata of bleeding. No evidence of fresh or old blood. Antral biopsies obtained. 2. Otherwise normal upper endoscopy Procedure: EGD with biopsy Anesthesia: MAC Surgeon: SHANNAN MASON Estimated blood loss: none Pathology: list (1. Antral biopsy) Specimen disposition: to lab Condition: stable Disposition: floor (Advance diet, and if hemoglobin remained stable, may discharge to home on daily oral PPI)
[2021-07-19 12:37] VITALS: BP 118/58
[2021-07-19] MEDS: PANTOPRAZOLE 40 MG TAB PO SCH ×2 (13:13→17:08)
--- NOTE | 2021-07-19 13:55 | Discharge Summary ---
Providers - Providers Date of Admission: 07/18/21 18:35 Date of discharge: 07/19/21 Attending physician: BALTA JUAREZ 07/18/21 15:47 Consult to Physician [CONS] Stat Comment: Consulting Provider: SHANNAN MASON Physician Instructions: Reason For Exam: ugib Primary care physician: PATIENT CARE COORDINATOR Hospitalization Condition: Good Procedures: EGD Post-op diagnosis: other (Antral ulcer, no stigmata of bleeding) Findings: 1. 1 cm white-based antral ulcer with antral deformity. No stigmata of bleeding. No evidence of fresh or old blood. Antral biopsies obtained. 2. Otherwise normal upper endoscopy Hospital course: History of present illness: 55-year-old with history of hypertension and osteoarthritis who takes Goody powders and naproxen, then for coffee-ground emesis and black tarry stools since yesterday. Patient has been taking pain medication for lower back pain. Takes Goody powders on a regular basis. Patient has epigastric pain which is sharp radiating to the back. No prior history of GI bleeding. No syncope. No lightheadedness. 07/19/21 Patient did well No further GI bleeding Gastric ulcer on Antrum sec to Nsaids and goody powder - Patient Problems (1) Upper GI bleed Current Visit: Yes Status: Acute Plan to address problem: Upper GI bleed secondary to Goody powders and NSAIDs Serial hematocrit and hemoglobin Transfuse if necessary--if H&H below 7.5 IV Protonix drip GI consult (2) Hypertension Current Visit: Yes Status: Chronic Qualifiers: Hypertension type: primary hypertension Qualified Code(s): I10 - Essential (primary) hypertension Plan to address problem: Will hold the blood pressure medicine for the time being Patient is n.p.o. (3) Low back pain Current Visit: Yes Status: Chronic Qualifiers: Chronicity: chronic Plan to address problem: Analgesics as necessary (4) Urinary tract infection Current Visit: Yes Status: Acute Qualifiers: Urinary tract infection type: acute cystitis Plan to address problem: IV Rocephin for now (5) Advance care planning Current Visit: Yes Status: Acute Plan to address problem: Ezequiel's education conducted care plan discussed, diagnosis discussed, prognosis discussed. Patient is full code. Patient acknowledges understanding and agreement with care plan. +30 minutes. (6) DVT prophylaxis Current Visit: Yes Status: Acute Plan to address problem: On SCDs and GI prophylaxis (7) Anemia Current Visit: Yes Status: Chronic Qualifiers: Anemia type: iron deficiency Plan to address problem: Anemia work-up for now Probably secondary to GI bleed Disposition: 01 HOME / SELF CARE / HOMELESS Final Discharge Diagnosis (Prints w/discharge instructions): Upper GI bleed. Gastric ulcer--bleeding. Symptomatic anemia. HTN. LBP. UTI Time spent for discharge: 35 minutes - Discharge Diagnoses (1) Upper GI bleed Status: Acute Comment: Stable No further GI bleed Discharge on PPI's (2) Hypertension Status: Chronic Qualifiers: Hypertension type: primary hypertension Qualified Code(s): I10 - Essential (primary) hypertension (3) Low back pain Status: Chronic Qualifiers: Chronicity: chronic (4) Urinary tract infection Status: Acute Qualifiers: Urinary tract infection type: acute cystitis (5) Advance care planning Status: Acute (6) DVT prophylaxis Status: Acute (7) Anemia Status: Chronic Qualifiers: Anemia type: iron deficiency Core Measure Documentation - Palliative Care Palliative Care/ Comfort Measures: Not Applicable - Core Measures Any of the following diagnoses?: none Exam - Constitutional Vitals: Temp Pulse Resp BP Pulse Ox 98.5 F 77 16 118/58 100 07/19/21 12:02 07/19/21 12:32 07/19/21 12:32 07/19/21 12:32 07/19/21 12:32 General appearance: Present: no acute distress, well-nourished - EENT Eyes: Present: PERRL ENT: hearing intact, clear oral mucosa - Neck Neck: Present: supple, normal ROM - Respiratory Respiratory effort: normal Respiratory: bilateral: CTA - Cardiovascular Heart rate: 78 Rhythm: regular Heart Sounds: Present: S1 & S2. Absent: rub, click - Extremities Extremities: pulses symmetrical, No edema Peripheral Pulses: within normal limits - Abdominal General gastrointestinal: Present: soft, non-tender, non-distended, normal bowel sounds Female genitourinary: Present: normal - Integumentary Integumentary: Present: clear, warm, dry - Musculoskeletal Musculoskeletal: gait normal, strength equal bilaterally - Psychiatric Psychiatric: appropriate mood/affect, intact judgment & insight - Neurologic Neurologic: CNII-XII intact, moves all extremities - Allied Health Allied health notes reviewed: nursing, case management Plan Activity: no restrictions Diet: low fat, low cholesterol, low salt Follow up with: PRIMARY CARE, [Primary Care Provider] - 3-5 Days
--- NOTE | 2021-07-19 14:21 | Operative Report ---
DATE OF SURGERY: 07/19/2021 PROCEDURE: Upper endoscopy with biopsy. PREOPERATIVE DIAGNOSES: Melena and coffee-ground emesis. POSTOPERATIVE DIAGNOSIS: Antral ulcer and deformity. SEDATION: MAC by anesthesia. HISTORY: The patient is a 55-year-old woman who presents with a history of Goody's use, melena, and an episode of coffee-ground emesis. DESCRIPTION OF PROCEDURE: Indications, risks, and benefits explained and consent obtained. The patient was placed in left lateral decubitus position and sedated. Endoscope was passed through mouth and oropharynx into descending duodenum and then gradually withdrawn with close inspection of mucosa. FINDINGS: 1. A 1 cm antral ulcer with white base and no stigmata of bleeding along with some rim deformity in the antrum. Antral biopsies obtained for H. pylori. 2. Otherwise, normal upper endoscopy with normal esophagus, stomach, and duodenum. There is no evidence of old or fresh blood. The patient tolerated the procedure well without immediate complication. IMPRESSION: Antral ulcer with deformity -- consistent with chronic NSAID or Goody's powder usage. No stigmata of bleeding. Antral biopsies obtained. RECOMMENDATIONS: 1. Advance diet and if does well, may discharge home on PPI. 2. Follow up as outpatient to review biopsies and treat if needed. 3. Stop Goody's powders. 4. The patient should stay on PPI for at least 2 months. TID: [id number] RECEIPT: [id number] HRC/SHE
--- NOTE | 2021-07-19 14:41 | Post Anesthesia Evaluation ---
- Post Anesthesia Evaluation Patient Participated: Yes Airway Patent: Yes Stable Respiratory Function: Yes Nausea/Vomiting: No Temp > 96.8F: Yes Pain Manageable: Yes Adequeate Hydration: Yes Anesthesia Complications: No Block Receding Appropriately: Not Applicable Patient on Ventilator: No
[2021-07-19 15:22] LABS: Hematocrit 28.9 % (30.3-42.9); Hemoglobin 9.2 gm/dl (10.1-14.3)
== END 2021-07-19 17:47 | disposition home or self-care (01) ==
LOC: ED 08:37 → 3A 18:35 → INTOOBSV 18:35 → 4A 20:34
PROVIDERS: ADMIT Internal Medicine; ATTEND Internal Medicine
DX: K25.9 Gastric ulcer, unspecified as acute or chronic, without hemorrhage or perforation (principal); I10 Essential (primary) hypertension; G89.29 Other chronic pain; M54.50 Low back pain, unspecified; N39.0 Urinary tract infection, site not specified; K92.1 Melena; D64.9 Anemia, unspecified; M19.90 Unspecified osteoarthritis, unspecified site; R10.9 Unspecified abdominal pain; Z79.82 Long term (current) use of aspirin; Z79.899 Other long term (current) drug therapy
CPT/HCPCS: 36415; 43239; 71045; 74177; 80053; 81001; 82270; 83690; 83735; 84484; 85014; 85018; 85025; 85610; 85730; 86850; 86900; 86901; 87086; 88305; 88342; 93005; 96365; 96366; 96376; 99285; C9113; G0378; J2405; J2704; J3010; J7030; J7042; Q9967; J3490; J0171